=== PATIENT | male | born 1980 | race Caucasian/White ===

== ENCOUNTER 2018-07-30 16:44 | Emergency (ER) | payer OTHER, MEDICAID, SELFPAY ==
[2018-07-30 16:51] VITALS: BP 101/64; PULSE 86; RESP 15; TEMP 36.7; O2SAT 97; BMI 25.1
--- NOTE | 2018-07-30 17:28 | ED_ITS ---
HPI - URI/Sore Throat <GAVIOTA Britt - Last Filed: 07/30/18 17:32> General Chief Complaint: Upper Respiratory Symptoms Stated Complaint: COUGH BAD HEADACHE RUNNY NOSE Time Seen by Provider: 07/30/18 17:00 Source: patient Mode of arrival: ambulatory Limitations: no limitations History of Present Illness HPI Narrative: MD Complaint: cough and nasal congestion Onset (ago): week(s) (2) Duration: constant Severity: mild Relieving factors: nothing Exacerbating factors: nothing Description of mucous: yellow and green Able to tolerate fluids by mouth: Yes Context: sick contacts Associated symptoms: rhinorrhea and nasal congestion Treatments prior to arrival: cold medicine Related Data Previous Rx's Medication Instructions Recorded azithromycin [Zithromax Z-Mario] See Label Instructions .ROUTE 07/30/18 .COMPLEX #6 tab guaifenesin [Mucinex] 600 mg PO Q12H #20 tab 07/30/18 Allergies Allergy/AdvReac Type Severity Reaction Status Date / Time Penicillins Allergy Verified 07/30/18 16:51 Review of Systems <GAVIOTA Britt - Last Filed: 07/30/18 17:32> Constitutional Reports as per HPI, Reports system reviewed and no additional complaints, except as docu, Denies body ache(s), Denies chills, Denies fever(s) and Denies headache(s) ENT Ears, Nose, Mouth, and Throat: Denies ear discharge, Denies otalgia, Denies facial pain, Denies headache(s), Reports nasal congestion, Denies nasal discharge, Denies post nasal drip, Denies sinus pain, Denies sinus pressure and Denies sore throat Cardiovascular Denies chest pain, Denies dyspnea and Denies dyspnea on exertion Respiratory Reports change in phlegm color (from white to yellow to green), Reports cough, Denies pain on inspiration, Denies pain with cough, Denies dyspnea, Denies dyspnea on exertion and Denies wheezing Gastrointestinal Gastrointestinal: Denies abdominal pain Musculoskeletal Reports system reviewed and no additional complaints, except as docu Neurologic Denies headache(s) Allergic/Immunologic Denies wheezing Exam <GAVIOTA Britt - Last Filed: 07/30/18 17:32> Initial Vital Signs Initial Vital Signs: Vital Signs Temperature 98.1 F 07/30/18 16:51 Pulse Rate 86 07/30/18 16:51 Respiratory Rate 15 07/30/18 16:51 Blood Pressure 101/64 07/30/18 16:51 Pulse Oximetry 97 07/30/18 16:51 Const General: cooperative, healthy appearing, comfortable, well developed and well groomed Nutritional Appearance: average body habitus Orientation: alert, awake and oriented x3 [facility] Head: normal to inspection and normocephalic Ears: hearing grossly normal bilaterally, external ears normal, TM's normal bilaterally and mastoids normal Nose: external nose normal and nares normal Face and sinus: normal facial exam, sinuses nontender and face symmetric Mouth: oral mucosae normal, lip normal, tongue normal, oropharynx normal and moist mucous membranes Teeth and gingiva: dentition normal and gingiva normal Throat: posterior oropharynx normal, tonsils normal and uvula midline Eyes General: appearance normal, both eyes and all related structures Visual Kilgore: normal visual kilgore by confrontation Eyelids: eyelids normal Conjunctivae: conjunctivae normal Sclera: sclerae normal Pupils: PERRL EOM: EOM intact bilaterally Neck Neck: normal visual inspection, full ROM, no meningeal signs, trachea midline, supple and No lymphadenopathy Chest Chest: normal inspection of the chest Resp Effort & Inspection: normal respiratory effort and able to speak in complete sentences Auscultation: clear to auscultation bilaterally Cardio Rate: regular rate Rhythm: regular rhythm Heart Sounds: S1 normal and S2 normal Back/Spine/Pelvis Cervical Spine: cervical ROM normal Thoracic/Lumbar Spine: thoraco-lumbar ROM normal Skin General: no rashes or lesions noted, elasticity normal, turgor normal and dry skin Neuro General: alert, awake, oriented x3 and meningeal signs present Cognition: normal cognition Speech: speech normal Gait: normal gait Motor: muscle tone normal throughout Sensory Exam: no sensory deficits noted Extrem General: normal to inspection and full ROM Psych Appearance: grossly normal and well kempt Mental Status: mental status grossly normal Speech and Movement: speech and movement normal Mood: congruent mood Affect: normal affect Attitude: cooperative Thought Process: normal Thought Content: normal Judgment: judgment good <Homa Willson, DO - Last Filed: 08/04/18 09:53> Initial Vital Signs Initial Vital Signs: Vital Signs Temperature 98.1 F 07/30/18 16:51 Pulse Rate 86 07/30/18 16:51 Respiratory Rate 15 07/30/18 16:51 Blood Pressure 101/64 07/30/18 16:51 Pulse Oximetry 97 07/30/18 16:51 Course <GAVIOTA Britt - Last Filed: 07/30/18 17:32> Course Narrative: agreed to do abx, since s/s are getting worse and lasting for longer than 10 days Vital Signs - 8 hr 07/30/18 16:51 Temperature 98.1 F Pulse Rate 86 Respiratory Rate 15 Blood Pressure 101/64 Pulse Oximetry 97 <Homa Willson DO - Last Filed: 08/04/18 09:53> Vital Signs - 8 hr 07/30/18 16:51 Temperature 98.1 F Pulse Rate 86 Respiratory Rate 15 Blood Pressure 101/64 Pulse Oximetry 97 MDM - URI/Sore Throat <GAVIOTA Britt - Last Filed: 07/30/18 17:32> Differential Diagnosis Differential diagnosis: Likely upper respiratory infection, sinusitis, viral infection, bronchitis, influenza and other (pneumonia) Discharge Plan Departure Patient Disposition: Home Clinical Impression: Walking pneumonia Discharge Date/Time: 07/30/18 17:31 Interventions: ED Discharge Assessment Last Done: 07/30/18 17:30 Instructions: Atypical Pneumonia Prescriptions: New azithromycin [Zithromax Z-Mario] 250 mg tablet See Label Instructions .ROUTE .COMPLEX Qty: 6 RF: 0 guaifenesin [Mucinex] 600 mg tablet extended release 12hr 600 mg PO Q12H Qty: 20 RF: 0 Referrals: Anselmo Bedolla MD [Physician] - (follow up recommended in 3-5 days) Timur Irene MD [Physician] - Jessica Torres MD [Physician] - <Homa Willson DO - Last Filed: 08/04/18 09:53> Cosign ED Attending Cosfayature Attestation: I was immediately available in the department for consultation. Documentation has been reviewed. I agree with assessment and plan.
== END 2018-07-30 17:31 | disposition home or self-care (01) ==
PROVIDERS: Emergency Provider Nurse Practitioner
DX: J18.9 Pneumonia, unspecified organism (principal)
CPT/HCPCS: 99282

== ENCOUNTER 2020-01-21 18:25 | Emergency (ER) | payer OTHER, MEDICAID, SELFPAY ==
[2020-01-21 18:33] VITALS: BP 127/70; PULSE 107; RESP 13; TEMP 36.4; O2SAT 99
--- NOTE | 2020-01-21 18:40 | ED.CHESTPAIN ---
HPI - Chest Pain General Chief Complaint: Chest Pain Stated Complaint: DIZZY TIRED LITTLE BIT OF CHEST PAIN Time Seen by Provider: 01/21/20 18:27 Source: patient and family (son) Mode of arrival: Ambulatory Limitations: no limitations History of Present Illness HPI narrative: 39-year-old male comes to the emergency department with complaint of feeling dizzy and having some burning in his chest patient denies any fevers. He has had some nasal congestion which is been dried. He denies any current cough. He denies any current shortness of breath. He states that it is not really chest pain or pressure but more burning sensation. He has a mild headache. No vision changes. He denies any syncope. He has been more sleepy today. He denies any abdominal pain. No nausea, no vomiting, no diarrhea constipation, no urinary symptoms. No swelling in extremities. He denies any numbness, tingling or weakness in his extremities. Patient states that he does not have any known medical issues, no prior surgeries. He does smoke tobacco about half pack a day, he denies alcohol, states he smokes marijuana but denies other illicit. He states that he drinks about 4 pots of coffee daily. 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 Related Data Home Medications Medication Instructions Recorded Confirmed No Known Home Medications 01/21/20 01/21/20 Allergies Allergy/AdvReac Type Severity Reaction Status Date / Time Penicillins Allergy Verified 01/21/20 18:39 Review of Systems Review of Systems ROS Unobtainable: All systems reviewed & are unremarkable except as noted in HPI and below Patient History Medical History (Updated 01/21/20 @ 18:50 by Kelly Galeas DO) Tobacco abuse (Acute) Social History (Updated 01/21/20 @ 19:47 by Kelly Galeas DO) Smoking Status: Current every day smoker substance use type: former substance user and marijuana Smoking Status: Current every day smoker Substance Use Type: marijuana Exam Narrative Exam Narrative: GEN: well nourished, well appearing male, alert and oriented x 3, patient appears to be in mild distress. HEENT: Atraumatic, pupils are equal round reactive to light, extraocular movements are intact, nares are clear, throat is clear without any exudates, erythema, tonsillar enlargement or uvular deviation HEART: Regular rate tachycardia and rhythm without murmur, clicks, rubs. No JVD. No swelling in bilateral lower extremities. LUNGS:Lungs clear to auscultation, no wheezes, rales, crackles, chest moves symmetrically, no tachypnea accessory muscle use. ABD:bowel sounds normal, soft, non-tender, no guarding, rebound, rigidity, no masses noted, no hepatosplenomegaly :No CVA tenderness MSCL: Non-tender, full range of motion, normal gait NEURO:CN 2-12 intact, sensation normal. SKIN: Rash, no erythema or skin changes. Initial Vital Signs Initial Vital Signs: Vital Signs Temperature 97.6 F 01/21/20 18:33 Pulse Rate 107 H 01/21/20 18:33 Respiratory Rate 13 01/21/20 18:33 Blood Pressure 127/70 01/21/20 18:33 Pulse Oximetry 99 01/21/20 18:33 Scores HEART Score Heart Score history: Slightly Suspicious Heart Score EKG: Non-Specific repolarization disturbance Heart Score Age: < 45 years old Heart Score risk factors: No known risk factors Heart Score troponin: < or = to normal limit Heart Score Total: 1 PERC Score Age greater than or equal to 50 years: No Heart rate greater than or equal to 100 bpm: Yes Room Air O2 Sat less than 95%: No Unilateral leg swelling: No Recent trauma or surgery: No Hemoptysis: No Prior PE or DVT: No Hormone Use: No Total PERC Score: 1 Course Orders Ordered: ED Orders 01/21/20 18:40 XR chest 1V Stat EKG-12 Lead Stat 01/21/20 18:55 Complete Blood Count AUTO DIFF Stat Comprehensive Metabolic Panel Stat D Dimer Stat Lipase Stat Partial Thromboplastin Time Stat Prothrombin Time INR Stat Troponin & CK Cardiac Panel Stat Discontinued Medications Aspirin (Aspirin Chew) 324 mg PO NOW ONE Stop: 01/21/20 18:41 Last Admin: 01/21/20 18:49 Dose: 324 mg Documented by: CTR.DENISE Sodium Chloride (Normal Saline 0.9%) 1,000 mls @ 1,000 mls/hr IV BOLUS ONE Stop: 01/21/20 19:39 Last Infusion: 01/21/20 19:50 Dose: 0 mls/hr Documented by: [email or web address] Admin: 01/21/20 18:50 Dose: 1,000 mls/hr Documented by: [email or web address] Vital Signs Vital signs: Vital Signs - 8 hr 01/21/20 18:33 01/21/20 18:50 01/21/20 19:06 Temperature 97.6 F Pulse Rate 107 H 113 H 111 H Respiratory Rate 13 16 20 Blood Pressure 127/70 Blood Pressure [Left Arm] 122/79 115/67 Pulse Oximetry 99 100 100 01/21/20 19:39 01/21/20 20:00 Temperature Pulse Rate 109 H 107 H Respiratory Rate 14 16 Blood Pressure 133/77 Blood Pressure [Left Arm] 113/70 Pulse Oximetry 99 99 MDM - Chest Pain Lab Data Attestation: I reviewed the patient's lab results. Result diagrams: 01/21/20 18:55 01/21/20 18:55 Labs: Lab Results 01/21/20 01/21/20 01/21/20 Range/Units 18:55 18:55 18:55 WBC 8.8 (4.5-11.0) X10^3/uL RBC 4.84 (4.5-5.9) X10^6/uL Hgb 14.8 (13.5-17.5) g/dL Hct 44.0 (41-53) % MCV 90.9 (80-100) fL MCH 30.5 (26-34) PG MCHC 33.6 (30-36) % RDW 13.5 (11.6-14.8) % Plt Count 294 (150-400) X10^3/uL Neut % (Auto) 48.4 L (50-75) % Lymph % (Auto) 37.6 (25-40) % Duval % (Auto) 7.0 (3-14) % Eos % (Auto) 6.0 H (2-4) % Baso % (Auto) 1.0 (0-2) % Neut # (Auto) 4300 (6802-5229) /uL Lymph # (Auto) 3300 (3172-2839) /uL Duval # (Auto) 600 (0-900) /uL Eos # (Auto) 500 H (0-450) /uL Baso # (Auto) 100 (0-100) /uL PT 9.8 L (10.1-12.7) SECONDS INR 0.8 L (0.9-1.3) APTT 31 (26.4-36.2) SECONDS D-Dimer (<230) ng/mL Sodium 140 (137-145) mmol/L Potassium 4.4 (3.4-5.1) mmol/L Chloride 105 (98-107) mmol/L Carbon Dioxide 26 (22-32) mmol/L BUN 19 (9-20) mg/dL Creatinine 0.91 (0.66-1.25) mg/dL Estimated GFR > 60.0 (>60) mL/min BUN/Creatinine Ratio 20.9 (6-22) Glucose 129 H (70-100) mg/dL Calcium 9.3 (8.4-10.2) mg/dL Total Bilirubin 0.2 (0.2-1.3) mg/dL AST 31 (17-59) IU/L ALT 23 (<50) IU/L Alkaline Phosphatase 103 (38-126) U/L Total Creatine Kinase 265 H (55-170) U/L CK-MB (CK-2) 2.04 (<2.37) ng/mL CK-MB (CK-2) Rel Index 0.8 L (1.5-5.0) % Troponin I < 0.012 (0.01-0.034) ng/mL Total Protein 7.4 (6.3-8.2) g/dL Albumin 4.2 (3.5-5.0) g/dL Globulin 3.2 (1.7-4.1) g/dL Albumin/Globulin Ratio 1.3 (1.0-2.8) Lipase 133 (23-300) U/L 03/24/20 Range/Units 18:55 WBC (4.5-11.0) X10^3/uL RBC (4.5-5.9) X10^6/uL Hgb (13.5-17.5) g/dL Hct (41-53) % MCV (80-100) fL MCH (26-34) PG MCHC (30-36) % RDW (11.6-14.8) % Plt Count (150-400) X10^3/uL Neut % (Auto) (50-75) % Lymph % (Auto) (25-40) % Duval % (Auto) (3-14) % Eos % (Auto) (2-4) % Baso % (Auto) (0-2) % Neut # (Auto) (6556-6862) /uL Lymph # (Auto) (9055-2302) /uL Duval # (Auto) (0-900) /uL Eos # (Auto) (0-450) /uL Baso # (Auto) (0-100) /uL PT (10.1-12.7) SECONDS INR (0.9-1.3) APTT (26.4-36.2) SECONDS D-Dimer < 200 (<230) ng/mL Sodium (137-145) mmol/L Potassium (3.4-5.1) mmol/L Chloride (98-107) mmol/L Carbon Dioxide (22-32) mmol/L BUN (9-20) mg/dL Creatinine (0.66-1.25) mg/dL Estimated GFR (>60) mL/min BUN/Creatinine Ratio (6-22) Glucose (70-100) mg/dL Calcium (8.4-10.2) mg/dL Total Bilirubin (0.2-1.3) mg/dL AST (17-59) IU/L ALT (<50) IU/L Alkaline Phosphatase (38-126) U/L Total Creatine Kinase (55-170) U/L CK-MB (CK-2) (<2.37) ng/mL CK-MB (CK-2) Rel Index (1.5-5.0) % Troponin I (0.01-0.034) ng/mL Total Protein (6.3-8.2) g/dL Albumin (3.5-5.0) g/dL Globulin (1.7-4.1) g/dL Albumin/Globulin Ratio (1.0-2.8) Lipase (23-300) U/L Imaging Data Chest x-ray: Radiologist's Impression: SAVANNAARAM Fonseca 39 M [address] [address] XRay Report Signed Patient: ARAM CORRALES FMR#: [id number] : 1980Acct:[id number] Age/Sex: 39 / MDate of Service: 01/21/20 Loc: ED Accession Number: [id number] Procedure: XR chest 1V Ordering Provider: Mank,Kelly C D.O. PROCEDURE: XR CHEST 1V INDICATIONS: Dizziness, fatigue, chest pain TECHNIQUE: One view of the chest was acquired. COMPARISON: None. FINDINGS: Surgical changes and devices: None. Lungs and pleura: Lungs are clear. No pleural effusions or pneumothorax. Mediastinum: Mediastinal contours appear normal. Heart size is normal. Bones and chest wall: No suspicious bony lesions. Overlying soft tissues appear unremarkable. IMPRESSION: 1. No acute cardiopulmonary disease. Dictated by: Tee Hanye M.D. on 01/21/2020 at 18:53 Approved by: Tee Haney M.D. on 01/21/2020 at 18:55 ECG Data Attestation: I personally reviewed and interpreted this ECG as follows: Prior ECG tracings: not available for review Interpretation: Sinus tachycardia rate of 109 ME 128 QRS of 96 and QTC of 436. Patient has RSR in V1 with 1 mm elevation in V1, no other ST segment changes appreciated. No prior available for review. MDM Narrative Medical decision making narrative: Patient comes in with a dizzy feeling but no syncope little bit of burning in his chest. No cough he does not feel short of breath. He is mildly tachycardic in even after 1 L fluids continues to be somewhat tachycardic but no hypotension, no fever no changes in respiratory rate or oxygenation. Discussed with patient his lab findings including CBC show low neutrophils with a higher eosinophil count, coags show an INR of 0.8 with a negative D-dimer. Electrolytes are negative with normal renal function a glucose of 129. Total CK is 265 with a negative troponin and otherwise normal lipase. Chest x-ray does not show acute findings. Patient's EKG does show sinus tachycardia. He does not have high risk factors in terms of pulmonary embolism. We did discuss that he normally drinks 4 pots of regular coffee daily and he has had 2 cups today. We discussed there may be a component of caffeine withdrawal. We also discussed that this could potentially be masking another cause but I have not found a clear cardiac, pulmonary, embolic or infectious cause at this time. Discussed return precautions watchful waiting that he should have some coffee at home this evening and see if that helps his symptoms and return if he is worsening. Patient and I did discuss potentially repeating another 1 L of fluids and observing for a longer period of time but he would prefer to return home at this time. Discharge Plan Departure Patient Disposition: Home Clinical Impression: Dizziness, Atypical chest pain Discharge Date/Time: 01/21/20 20:00 Instructions: DI for Atypical Chest Pain Activity Restrictions/Additional Instructions: There may be a component of caffeine withdrawal to your symptoms today I would recommend drinking a moderate amount of caffeine when he returned home and see if this improves your symptoms. I do recommend that you continue to orally hydrate with fluids and include water in your diet. Return for fevers and shortness of breath, passing out, new or worsening chest pain or pressure, persistent vomiting, swelling in your extremities, new rashes or skin changes, black or bloody stools or other new or concerning symptoms. Prescriptions: No Action No Known Home Medications RF: 0
[2020-01-21] MEDS: ASPIRIN 81 MG CHEW TAB 324 MG PO (18:49)
[2020-01-21 18:50] VITALS: BP 122/79; PULSE 113; RESP 16; O2SAT 100
[2020-01-21] MEDS: SODIUM CHLORIDE 0.9% 1,000 ML 1000 ML IV (18:50)
[2020-01-21 19:02] LABS: Add Manual Diff / Slide Review NO; Basophils Absolute Auto 100 /uL (0-100); Eosinophils Absolute Auto 500 /uL (0-450); Hemoglobin 14.8 g/dL (13.5-17.5); Lymphocytes Absolute Auto 3300 /uL (1100-4500); Lymphocytes Percent Auto 37.6 % (25-40); Mean Corpuscular HGB Conc 33.6 % (30-36); Mean Corpuscular Hemoglobin 30.5 PG (26-34); Mean Corpuscular Volume 90.9 fL (80-100); Monocytes Absolute Auto 600 /uL (0-900); Neutrophils Absolute Auto 4300 /uL (1500-7000); Neutrophils Percent Auto 48.4 % (50-75); Platelet Count 294 X10^3/uL (150-400); Red Blood Cell Count 4.84 X10^6/uL (4.5-5.9); Red Cell Distribution Width 13.5 % (11.6-14.8); White Blood Cell Count 8.8 X10^3/uL (4.5-11.0)
[2020-01-21 19:06] VITALS: BP 115/67; PULSE 111; RESP 20; O2SAT 100
[2020-01-21 19:12] LABS: Alanine Aminotransferase 23 IU/L (<50); Albumin 4.2 g/dL (3.5-5.0); Albumin Globulin Ratio 1.3 (1.0-2.8); Alkaline Phosphatase 103 U/L (38-126); Aspartate Aminotransferase 31 IU/L (17-59); BUN Creatinine Ratio 20.9 (6-22); Bilirubin Total 0.2 mg/dL (0.2-1.3); Blood Urea Nitrogen 19 mg/dL (9-20); Calcium 9.3 mg/dL (8.4-10.2); Carbon Dioxide 26 mmol/L (22-32); Chloride 105 mmol/L (98-107); Creatine Kinase 265 U/L (55-170); Estimated Glomerular Filt Rate > 60.0 mL/min (>60); Globulin 3.2 g/dL (1.7-4.1); Glucose 129 mg/dL (70-100); HEMOLYSIS 19 (0-50); Lipase 133 U/L (23-300); Potassium 4.4 mmol/L (3.4-5.1); Sodium 140 mmol/L (137-145); Total Protein 7.4 g/dL (6.3-8.2)
[2020-01-21 19:13] LABS: D Dimer < 200 ng/mL (<230)
[2020-01-21 19:18] LABS: INR 0.8 (0.9-1.3); Prothrombin Time 9.8 SECONDS (10.1-12.7)
[2020-01-21 19:20] LABS: PTT Partial Thromboplastin Tim 31 SECONDS (26.4-36.2)
[2020-01-21 19:24] LABS: Troponin I < 0.012 ng/mL (0.01-0.034)
[2020-01-21 19:27] LABS: CKMB % Relative Index 0.8 % (1.5-5.0); Creatine Kinase MB 2.04 ng/mL (<2.37)
[2020-01-21 19:39] VITALS: BP 113/70; PULSE 109; RESP 14; O2SAT 99
--- NOTE | 2020-01-21 19:42 | PC.NURSE ---
Provider in room discussing test results.
[2020-01-21 20:00] VITALS: BP 133/77; PULSE 107; RESP 16; O2SAT 99
== END 2020-01-21 20:00 | disposition home or self-care (01) ==
PROVIDERS: Emergency Provider Emergency Medicine
DX: R07.9 Chest pain, unspecified (principal); R42 Dizziness and giddiness; R07.89 Other chest pain; R00.0 Tachycardia, unspecified
CPT/HCPCS: 36415; 71045; 80053; 82550; 82553; 83690; 84484; 85025; 85379; 85610; 85730; 93005; 96360; 99284

== ENCOUNTER 2022-02-16 20:36 | Emergency (ER) | payer OTHER, MEDICAID, SELFPAY ==
[2022-02-16] VITALS (7 sets, daily range): BP systolic 89–120; BP diastolic 55–81; PULSE 75–97; RESP 22; TEMP 36.5–36.6; O2SAT 95–99; BMI 27.8
--- NOTE | 2022-02-16 20:47 | DI.RAD.S_ITS ---
PROCEDURE: XR CHEST 1V INDICATIONS: chest pain TECHNIQUE: One view of the chest was acquired. COMPARISON: [facility], CR, XR CHEST 1V, 01/21/2020, 18:43. FINDINGS: Surgical changes and devices: None. Lungs and pleura: Lungs are clear. No pleural effusions or pneumothorax. Mediastinum: Mediastinal contours appear normal. Heart size is normal. Bones and chest wall: No suspicious bony lesions. Overlying soft tissues appear unremarkable. IMPRESSION: No acute cardiopulmonary abnormality. Dictated by: Mateusz King M.D. on 02/16/2022 at 22:24 Approved by: Mateusz King M.D. on 02/16/2022 at 22:24
[2022-02-16 22:12] LABS: Add Manual Diff / Slide Review NO; Basophils Absolute Auto 100 /uL (0-100); Basophils Percent Auto 0.7 % (0-2); Eosinophils Absolute Auto 300 /uL (0-450); Eosinophils Percent Auto 3.2 % (2-4); Hematocrit 47.4 % (41-53); Lymphocytes Absolute Auto 3400 /uL (1100-4500); Lymphocytes Percent Auto 36.2 % (25-40); Mean Corpuscular HGB Conc 33.8 % (30-36); Mean Corpuscular Hemoglobin 29.7 PG (26-34); Mean Corpuscular Volume 87.9 fL (80-100); Monocytes Absolute Auto 800 /uL (0-900); Neutrophils Absolute Auto 4900 /uL (1500-7000); Neutrophils Percent Auto 51.9 % (50-75); Platelet Count 347 X10^3/uL (150-400); Red Cell Distribution Width 13.7 % (11.6-14.8); White Blood Cell Count 9.4 X10^3/uL (4.5-11.0)
[2022-02-16 22:16] LABS: Alanine Aminotransferase 44 IU/L (<50); Albumin 4.5 g/dL (3.5-5.0); Albumin Globulin Ratio 1.3 (1.0-2.8); Alkaline Phosphatase 121 U/L (38-126); Aspartate Aminotransferase 33 IU/L (17-59); BUN Creatinine Ratio 17.2 (6-22); Bilirubin Total 0.4 mg/dL (0.2-1.3); Blood Urea Nitrogen 16 mg/dL (9-20); Calcium 8.9 mg/dL (8.4-10.2); Carbon Dioxide 28 mmol/L (22-32); Chloride 106 mmol/L (98-107); Creatine Kinase 97 U/L (55-170); Estimated Glomerular Filt Rate > 60 mL/min (>60); Globulin 3.6 g/dL (1.7-4.1); Glucose 98 mg/dL (70-100); HEMOLYSIS < 15 (0-50); Lipase 115 U/L (23-300); Magnesium 2.2 mg/dL (1.6-2.3); Potassium 4.8 mmol/L (3.4-5.1); Sodium 142 mmol/L (137-145); Total Protein 8.1 g/dL (6.3-8.2)
[2022-02-16 22:27] LABS: Troponin I < 0.012 ng/mL (0.01-0.034)
--- NOTE | 2022-02-16 22:35 | ED_ITS ---
HPI - Chest Pain General Chief Complaint: Chest Pain Stated Complaint: Chest Pain Time Seen by Provider: 02/16/22 22:06 Source: patient Mode of arrival: EMS Limitations: no limitations History of Present Illness HPI narrative: 41-year-old male. Otherwise healthy. Three days ago took a home COVID testing was positive. Started to develop symptoms that he presents with today over the past 24 hours. He states the reason he to go home COVID test is because his niece tested positive. Patient states he is having a headache. Has had headaches in the past. Is also having a cough and chest discomfort. No vomiti ng. No skin rashes. No abdominal pain. Related Data Home Medications Medication Instructions Recorded Confirmed No Known Home Medications 01/21/20 01/21/20 Allergies Allergy/AdvReac Type Severity Reaction Status Date / Time Penicillins Allergy Verified 01/21/20 18:39 Review of Systems Constitutional Constitutional: Denies fever(s) and Reports headache(s) Eyes Eyes: Reports system reviewed and no additional complaints, except as documented ENT Ears, Nose, Mouth, and Throat: Reports headache(s) Cardiovascular Cardiovascular: Reports system reviewed and no additional complaints, except as documented Respiratory Respiratory: Reports as per HPI and Reports system reviewed and no additional complaints, except as documented Gastrointestinal Gastrointestinal: Reports as per HPI and Reports system reviewed and no additional complaints, except as documented Musculoskeletal Musculoskeletal: Reports system reviewed and no additional complaints, except as documented Integumentary/Breasts Skin/Breast: Reports system reviewed and no additional complaints, except as documented Neurologic Neurologic: Reports system reviewed and no additional complaints, except as documented and Reports headache(s) Hematologic/Lymphatic On Anticoagulants: No Patient History Medical History Tobacco abuse Social History Smoking Status: Current every day smoker substance use type: former substance user and marijuana Smoking Status: Current every day smoker tobacco type: cigarettes Substance Use Type: marijuana Exam Initial Vital Signs Initial Vital Signs: Vital Signs Temperature 97.8 F 02/16/22 20:38 Pulse Rate 97 H 02/16/22 20:38 Respiratory Rate 22 02/16/22 20:38 Blood Pressure 120/81 02/16/22 20:38 Pulse Oximetry 99 02/16/22 20:38 Const General: cooperative and comfortable HENMT Head: normal to inspection and normocephalic Resp Effort & Inspection: normal respiratory effort Cardio Rate: regular rate GI Inspection: normal to inspection Skin General: no rashes or lesions noted Neuro General: patient alert, patient awake, patient oriented x3 and moves all extremities Speech: speech normal Gait: normal gait Extrem General: normal to inspection Psych Appearance: grossly normal and well kempt Course Orders Ordered: ED Orders 02/16/22 20:47 XR chest 1V Stat EKG-12 Lead Stat 02/16/22 21:08 Complete Blood Count AUTO DIFF Stat Comprehensive Metabolic Panel Stat Lipase Stat Magnesium Stat Troponin & CK Cardiac Panel Stat Discontinued Medications Acetaminophen (Acetaminophen 325 Mg Tablet) 650 mg PO NOW ONE Stop: 02/16/22 22:36 Last Admin: 02/16/22 22:45 Dose: 650 mg Documented by: MIGUEL ANGEL Diphenhydramine HCl (Diphenhydramine 50 Mg/Ml Vial) 25 mg IV NOW ONE Stop: 02/16/22 22:36 Last Admin: 02/16/22 22:44 Dose: 25 mg Documented by: MIGUEL ANGEL Sodium Chloride (Normal Saline 0.9%) 1,000 mls @ 1,000 mls/hr IV BOLUS ONE Stop: 02/16/22 23:34 Last Infusion: 02/16/22 23:47 Dose: 0 mls/hr Documented by: MIGUEL ANGEL Admin: 02/16/22 22:45 Dose: 1,000 mls/hr Documented by: MIGUEL ANGEL Metoclopramide HCl (Metoclopramide 10 Mg/2 Ml Inj) 10 mg IV NOW ONE Stop: 02/16/22 22:36 Last Admin: 02/16/22 22:44 Dose: 10 mg Documented by: MIGUEL ANGEL Vital Signs Vital signs: Vital Signs - 8 hr 02/16/22 21:55 02/16/22 21:56 02/16/22 22:00 Temperature 97.7 F Pulse Rate 88 85 78 Blood Pressure 107/61 108/61 Pulse Oximetry 97 95 96 02/16/22 22:30 02/16/22 23:00 02/16/22 23:30 Temperature Pulse Rate 86 75 80 Blood Pressure 106/60 89/56 L 101/55 L Pulse Oximetry 98 99 99 02/17/22 00:00 Temperature Pulse Rate 73 Blood Pressure 99/55 L Pulse Oximetry 99 MDM - Chest Pain Lab Data Attestation: I reviewed the patient's lab results. Result diagrams: 02/16/22 21:08 02/16/22 21:08 Labs: Lab Results 02/16/22 02/16/22 Range/Units 21:08 21:08 WBC 9.4 (4.5-11.0) X10^3/uL RBC 5.40 (4.5-5.9) X10^6/uL Hgb 16.0 (13.5-17.5) g/dL Hct 47.4 (41-53) % MCV 87.9 (80-100) fL MCH 29.7 (26-34) PG MCHC 33.8 (30-36) % RDW 13.7 (11.6-14.8) % Plt Count 347 (150-400) X10^3/uL Neut % (Auto) 51.9 (50-75) % Lymph % (Auto) 36.2 (25-40) % [place] % (Auto) 8.0 (3-14) % Eos % (Auto) 3.2 (2-4) % Baso % (Auto) 0.7 (0-2) % Neut # (Auto) 4900 (4200-3027) /uL Lymph # (Auto) 3400 (8699-0806) /uL [place] # (Auto) 800 (0-900) /uL Eos # (Auto) 300 (0-450) /uL Baso # (Auto) 100 (0-100) /uL Sodium 142 (137-145) mmol/L Potassium 4.8 (3.4-5.1) mmol/L Chloride 106 (98-107) mmol/L Carbon Dioxide 28 (22-32) mmol/L BUN 16 (9-20) mg/dL Creatinine 0.93 (0.66-1.25) mg/dL Estimated GFR > 60 (>60) mL/min BUN/Creatinine Ratio 17.2 (6-22) Glucose 98 (70-100) mg/dL Calcium 8.9 (8.4-10.2) mg/dL Magnesium 2.2 (1.6-2.3) mg/dL Total Bilirubin 0.4 (0.2-1.3) mg/dL AST 33 (17-59) IU/L ALT 44 (<50) IU/L Alkaline Phosphatase 121 (38-126) U/L Total Creatine Kinase 97 (55-170) U/L CK-MB (CK-2) TNP CK-MB (CK-2) Rel Index TNP Troponin I < 0.012 (0.01-0.034) ng/mL Total Protein 8.1 (6.3-8.2) g/dL Albumin 4.5 (3.5-5.0) g/dL Globulin 3.6 (1.7-4.1) g/dL Albumin/Globulin Ratio 1.3 (1.0-2.8) Lipase 115 (23-300) U/L Imaging Data Chest x-ray: Radiologist's Impression: [address] [address] XRay Report Signed Patient: Jaiden Cassidy MR#: [id number] : 1980 Acct:[id number] Age/Sex: 41 / M Date of Service: 02/16/22 Loc: ED Accession Number: [id number] ?? Procedure: XR chest 1V Ordering Provider: Timur Gonzales D.O. PROCEDURE:? XR CHEST 1V ? INDICATIONS:? chest pain ? TECHNIQUE:? One view of the chest was acquired.? ? COMPARISON:? [facility], [place], XR CHEST 1V, 01/21/2020, 18:43. ? FINDINGS:? ? Surgical changes and devices:? None.? ? Lungs and pleura:? Lungs are clear.? No pleural effusions or pneumothorax.? ? Mediastinum:? Mediastinal contours appear normal.? Heart size is normal.? ? Bones and chest wall:? No suspicious bony lesions.? Overlying soft tissues appear unremarkable.? ? IMPRESSION:? No acute cardiopulmonary abnormality. ? ? ? Dictated by: Mateusz King M.D. on 02/16/2022 at 22:24 ? ? Approved by: Mateusz King M.D. on 02/16/2022 at 22:24? ECG Data Attestation: I personally reviewed and interpreted this ECG as follows: Interpretation: Sinus rhythm Ventricular rate 90 Normal axis Normal QRS Normal QTC No ST T wave changes MDM Narrative Medical decision making narrative: Patient does have COVID. Exam unremarkable. Reports improvement of headache after treatment here in the ER. I do have low suspicion for meningitis. Low suspicion for intracranial hemorrhage. Low suspicion for ACS. Discharged home and instructed that he can take Tylenol for his headache. He was given return precautions. He expressed understanding and agreement. Discharge Plan Departure Patient Disposition: Home Clinical Impression: COVID-19, Headache Instructions: DI for COVID-19 (Suspected or Confirmed ) Activity Restrictions/Additional Instructions: You can take Tylenol for the headaches or body aches. Follow all CDC guidelines with regard to quarantine yourself because of the previous COVID-19 diagnosis. Return to the emergency department for any new or worsening symptoms. Prescriptions: No Action No Known Home Medications 0RF
[2022-02-16] MEDS: METOCLOPRAMIDE 10 MG/2 ML INJ IV (22:44)
[2022-02-16] MEDS: diphenhydrAMINE 50 MG/ML VIAL 25 MG IV (22:44)
[2022-02-16] MEDS: ACETAMINOPHEN 325 MG TABLET 650 MG PO (22:45)
[2022-02-16] MEDS: SODIUM CHLORIDE 0.9% 1,000 ML 1000 ML IV (22:45)
[2022-02-17] VITALS: BP 99/55; PULSE 73; O2SAT 99
== END 2022-02-17 00:24 | disposition home or self-care (01) ==
PROVIDERS: Emergency Provider Emergency Medicine
DX: U07.1 COVID-19 (principal); R51.9 Headache, unspecified; F17.210 Nicotine dependence, cigarettes, uncomplicated
CPT/HCPCS: 36415; 71045; 80053; 82550; 83690; 83735; 84484; 85025; 93005; 96361; 96374; 96375; 99284; J1200; J2765

== ENCOUNTER 2023-06-09 12:27 | Emergency (ER) | payer OTHER, MEDICAID, SELFPAY ==
[2023-06-09] VITALS (9 sets, daily range): BP systolic 128–163; BP diastolic 79–93; PULSE 59–103; RESP 14–19; TEMP 36.6; O2SAT 95–100; BMI 30.1
[2023-06-09] MEDS: LIDOCAINE 2% (GLYDO) 6 ML GEL TOP (13:15)
--- NOTE | 2023-06-09 13:22 | DI.CT.S_ITS ---
PROCEDURE: CT KIDNEY URETER BLADDER (KUB) INDICATIONS: RLQ, difficulty with urination TECHNIQUE: Axial sections were acquired from the lung bases to the pubic symphysis. Coronal and sagittal reformats were performed. For radiation dose reduction, the following was used: automated exposure control, adjustment of mA and/or kV according to patient size. COMPARISON: None. FINDINGS: Image quality: Excellent. Lung bases: Unremarkable. Small hiatal hernia. Heart: No significant findings. URINARY: Right Kidney and ureter: There is a 5 mm stone in the distal right ureter demonstrating CT density 520 HU. Mild right hydronephrosis and perinephric stranding. There is a 3 mm nonobstructive stone in the inferior pole. Mild hydroureter and perinephric stranding to the level of the obstructive stone. Left Kidney and ureter: There is a 3 mm nonobstructive stone in the superior pole. No hydronephrosis. No hydroureter. Bladder: Cotter catheter within the bladder which is contracted. No calcified stones. Air within the bladder lumen is likely iatrogenic. ABDOMEN: Liver: Unremarkable. Gallbladder: Contracted. Question small gallstones and mild wall thickening. Biliary ducts: Unremarkable. Pancreas: Unremarkable. Spleen: Unremarkable. Adrenal Glands: Unremarkable. Stomach and Bowel: Stomach, small bowel loops, and colon are normal in caliber. There is a large amount of stool in colon. The distal colon is decompressed. Question mildly increased subacute to fat content in the distal colon, which could be due to artifact or chronic inflammatory change. Peritoneum: No abnormal intraperitoneal fluid. No free air. Ventral Wall: No hernia. Abdominal Nodes: No enlarged retroperitoneal or mesenteric lymph nodes. Vessels: Aorta and inferior vena cava are normal in size. PELVIS: Pelvic Organs: Unremarkable. Pelvic Nodes: Unremarkable. Miscellaneous: No inguinal hernias are seen. Bones: Mild levoscoliosis. Mild degenerative disc and facet disease in lumbar spine. IMPRESSION: 1. There is a 5 mm obstructive stone in the distal right ureter causing mild right hydronephrosis. 2. Bilateral nonobstructive renal calculi. 3. A Cotter catheter within the urinary bladder. No bladder stones. Air within the bladder lumen is likely iatrogenic. 4. Contracted gallbladder. Question small gallstones and mild gallbladder wall thickening. If clinically indicated, ultrasound may be helpful. Dictated by: Harish Restrepo M.D. on 06/09/2023 at 14:52 Approved by: Harish Restrepo M.D. on 06/09/2023 at 15:00
[2023-06-09 13:27] LABS: Appearance Urine UA TURBID; Bilirubin Urine UA 2+ (NEGATIVE); Color Urine UA BROWN; Glucose Urine UA NEGATIVE (Negative); Ketones Urine UA TRACE (NEGATIVE); Leukocyte Esterase Urine UA NEGATIVE (NEGATIVE); Nitrite Urine UA NEGATIVE (Negative); Occult Blood Urine UA 3+ (Negative); Protein Urine UA 2+ (Negative); Specific Gravity Urine UA >=1.030 (1.000-1.035)
[2023-06-09 13:34] LABS: Amorphous Sediment Urine 2+; Bacteria Urine Occasional (0-1); Culture Indicated Urine Specimen Cultured; Ictotest Urine Negative (Negative); RBC Urine >100/HPF (0-5/HPF); Squamous Epithelial Cell Urine 1-5 /HPF (0-5/HPF); WBC Urine 0-1/HPF (0-5/HPF)
[2023-06-09] MEDS: KETOROLAC 30 MG/ML VIAL 15 MG IV (13:47)
--- NOTE | 2023-06-09 14:10 | ED.ABDPAIN ---
HPI - Abdominal Pain <Jessica Bee PA-C - Last Filed: 06/09/23 18:56> General Chief Complaint: Abdominal Pain Stated Complaint: RLQ pain Time Seen by Provider: 06/09/23 13:22 Source: patient and EMS Mode of arrival: EMS History of Present Illness HPI narrative: 42-year-old male with history of kidney stones presents with right lower quadrant pain. Was at his baseline yesterday, went to bed last night, and woke up early this morning with lower abdominal pain and unable to void. He tried to go to work this morning but had to leave because he still could not void and was in a lot of pain. This does not feel like previous kidney stones. He has not taken any medication. The pain is in the right lower quadrant and does not radiate. He denies fever, nausea vomiting, penile discharge. Related Data Previous Rx's Medication Instructions Recorded oxycodone-acetaminophen 5 mg-325 1 tab PO Q4H PRN pain (scale score 06/09/23 mg tablet 7-10) #14 tabs tamsulosin 0.4 mg capsule 0.4 mg PO DAILY #30 caps 06/09/23 Allergies Allergy/AdvReac Type Severity Reaction Status Date / Time Penicillins Allergy Swelling Verified 06/09/23 13:12 of Lip/Tongue/Throat Review of Systems <Jessica Bee PA-C - Last Filed: 06/09/23 18:56> Review of Systems ROS Unobtainable: All systems reviewed & are unremarkable except as noted in HPI and below Patient History <Jessica Bee PA-C - Last Filed: 06/09/23 18:56> Medical History Tobacco abuse Social History Smoking Status: Current every day smoker substance use type: former substance user and marijuana Smoking Status: Current every day smoker tobacco type: cigarettes Substance Use Type: marijuana Exam <Jessica Bee PA-C - Last Filed: 06/09/23 18:56> Narrative Exam Narrative: GENERAL: 42 year old patient appears stated age. Well-developed patient, in mild distress. NEURO: AOx3. HEAD: Atraumatic. Normocephalic. CARDIOVASCULAR: Regular rate and rhythm without murmurs, gallops, or rubs. RESPIRATORY: Clear to auscultation. Breath sounds equal bilaterally. No wheezes, rales, or rhonchi. GASTROINTESTINAL: Abdomen soft, tender over right lower quadrant, no distention, no peritoneal signs. Positive right-sided CVA tenderness. EXTREMITIES: No edema or joint tenderness. SKIN: No rash or erythema of visible areas Initial Vital Signs Initial Vital Signs: Vital Signs Pulse Oximetry 95 06/09/23 12:29 <Kelly Galeas DO - Last Filed: 06/09/23 19:33> Initial Vital Signs Initial Vital Signs: Vital Signs Pulse Oximetry 95 06/09/23 12:29 Course <Jessica Bee PA-C - Last Filed: 06/09/23 18:56> Orders Ordered: ED Orders 06/09/23 13:00 Ictotest Urine Stat Urinalysis and Microscopic Stat Urine Culture Stat 06/09/23 13:17 EKG-12 Lead Stat 06/09/23 13:22 CT kidney ureter bladder (KUB) Stat 06/09/23 14:05 Complete Blood Count AUTO DIFF Stat Comprehensive Metabolic Panel Stat Lipase Stat Discontinued Medications Ketorolac Tromethamine (Ketorolac 30 Mg/Ml Vial) 15 mg IV NOW ONE Stop: 06/09/23 13:38 Last Admin: 06/09/23 13:47 Dose: 15 mg Documented By: RANDELLB Lidocaine HCl (Lidocaine 2% (Glydo) 6 Ml Gel) 6 ml TOP NOW ONE Stop: 06/09/23 12:41 Last Admin: 06/09/23 13:15 Dose: 6 ml Documented By: RB Ondansetron HCl (Ondansetron 4 Mg Odt) 4 mg PO NOW PRN PRN Reason: Nausea And Vomiting Ondansetron HCl (Ondansetron 4 Mg/2 Ml Inj) 4 mg IV NOW PRN PRN Reason: Nausea And Vomiting Vital Signs Vital signs: Vital Signs - 8 hr 06/09/23 13:06 06/09/23 12:29 06/09/23 12:30 Temperature 97.9 F Pulse Rate 62 Respiratory Rate 18 Blood Pressure 153/85 H 153/85 H Pulse Oximetry 98 95 Oxygen Delivery Method Room Air 06/09/23 12:30 06/09/23 13:00 06/09/23 13:00 Temperature Pulse Rate 59 L 61 Respiratory Rate Blood Pressure 163/93 H Pulse Oximetry 100 99 Oxygen Delivery Method 06/09/23 13:30 06/09/23 13:30 06/09/23 14:00 Temperature Pulse Rate 62 79 Respiratory Rate 19 14 Blood Pressure 149/89 H Pulse Oximetry 100 Oxygen Delivery Method 06/09/23 14:18 06/09/23 14:18 06/09/23 14:30 Temperature Pulse Rate 103 H Respiratory Rate Blood Pressure 128/87 138/86 Pulse Oximetry 99 Oxygen Delivery Method 06/09/23 14:30 06/09/23 15:00 06/09/23 15:00 Temperature Pulse Rate 77 83 Respiratory Rate 18 Blood Pressure 128/79 Pulse Oximetry 99 98 Oxygen Delivery Method Room Air <Kelly Galeas, - Last Filed: 06/09/23 19:33> Orders Ordered: ED Orders 06/09/23 13:00 Ictotest Urine Stat Urinalysis and Microscopic Stat Urine Culture Stat 06/09/23 13:17 EKG-12 Lead Stat 06/09/23 13:22 CT kidney ureter bladder (KUB) Stat 06/09/23 14:05 Complete Blood Count AUTO DIFF Stat Comprehensive Metabolic Panel Stat Lipase Stat Discontinued Medications Ketorolac Tromethamine (Ketorolac 30 Mg/Ml Vial) 15 mg IV NOW ONE Stop: 06/09/23 13:38 Last Admin: 06/09/23 13:47 Dose: 15 mg Documented By: DKB Lidocaine HCl (Lidocaine 2% (Glydo) 6 Ml Gel) 6 ml TOP NOW ONE Stop: 06/09/23 12:41 Last Admin: 06/09/23 13:15 Dose: 6 ml Documented By: RB Ondansetron HCl (Ondansetron 4 Mg Odt) 4 mg PO NOW PRN PRN Reason: Nausea And Vomiting Ondansetron HCl (Ondansetron 4 Mg/2 Ml Inj) 4 mg IV NOW PRN PRN Reason: Nausea And Vomiting Vital Signs Vital signs: Vital Signs - 8 hr 06/09/23 13:06 06/09/23 12:29 06/09/23 12:30 Temperature 97.9 F Pulse Rate 62 Respiratory Rate 18 Blood Pressure 153/85 H 153/85 H Pulse Oximetry 98 95 Oxygen Delivery Method Room Air 06/09/23 12:30 06/09/23 13:00 06/09/23 13:00 Temperature Pulse Rate 59 L 61 Respiratory Rate Blood Pressure 163/93 H Pulse Oximetry 100 99 Oxygen Delivery Method 06/09/23 13:30 06/09/23 13:30 06/09/23 14:00 Temperature Pulse Rate 62 79 Respiratory Rate 19 14 Blood Pressure 149/89 H Pulse Oximetry 100 Oxygen Delivery Method 06/09/23 14:18 06/09/23 14:18 06/09/23 14:30 Temperature Pulse Rate 103 H Respiratory Rate Blood Pressure 128/87 138/86 Pulse Oximetry 99 Oxygen Delivery Method 06/09/23 14:30 06/09/23 15:00 06/09/23 15:00 Temperature Pulse Rate 77 83 Respiratory Rate 18 Blood Pressure 128/79 Pulse Oximetry 99 98 Oxygen Delivery Method Room Air MDM - Abdominal Pain <Jessica Bee PA-C - Last Filed: 06/09/23 18:56> Lab Data 06/09/23 14:05 06/09/23 14:05 Labs: Lab Results 06/09/23 06/09/23 06/09/23 Range/Units 13:00 14:05 14:05 WBC 10.4 (4.5-11.0) X10^3/uL RBC 5.14 (4.5-5.9) X10^6/uL Hgb 15.5 (13.5-17.5) g/dL Hct 45.8 (41-53) % MCV 89.1 (80-100) fL MCH 30.2 (26-34) PG MCHC 33.9 (30-36) % RDW 13.7 (11.6-14.8) % Plt Count 295 (150-400) X10^3/uL Neut % (Auto) 81.6 H (50-75) % Lymph % (Auto) 13.2 L (25-40) % [place] % (Auto) 4.4 (3-14) % Eos % (Auto) 0.4 L (2-4) % Baso % (Auto) 0.4 (0-2) % Neut # (Auto) 8500 H (8356-5693) /uL Lymph # (Auto) 1400 (7743-5111) /uL [place] # (Auto) 500 (0-900) /uL Eos # (Auto) 0 (0-450) /uL Baso # (Auto) 0 (0-100) /uL Sodium 138 (137-145) mmol/L Potassium 4.9 (3.4-5.1) mmol/L Chloride 102 (98-107) mmol/L Carbon Dioxide 30 (22-32) mmol/L BUN 18 (9-20) mg/dL Creatinine 1.07 (0.66-1.25) mg/dL Estimated GFR > 60 (>60) mL/min BUN/Creatinine Ratio 16.8 (6-22) Glucose 112 H (70-100) mg/dL Calcium 9.4 (8.4-10.2) mg/dL Total Bilirubin 0.6 (0.2-1.3) mg/dL AST 43 (17-59) IU/L ALT 33 (<50) IU/L Alkaline Phosphatase 133 H (38-126) U/L Total Protein 8.5 H (6.3-8.2) g/dL Albumin 4.7 (3.5-5.0) g/dL Globulin 3.8 (1.7-4.1) g/dL Albumin/Globulin Ratio 1.2 (1.0-2.8) Lipase 93 (23-300) U/L Urine Color Brown Urine Appearance Turbid Urine pH 5.0 (4.5-8.0) Ur Specific [place] >=1.030 H (1.000-1.035) Urine Protein 2+ H (Negative) Urine Glucose (UA) Negative (Negative) g/dL Urine Ketones Trace H (NEGATIVE) Urine Occult Blood 3+ H (Negative) Urine Nitrate Negative (Negative) Urine Bilirubin 2+ H (NEGATIVE) Ur Bilirubin Confirm Negative (Negative) Urine Urobilinogen 1.0 (0.2) E.U./dL Ur Leukocyte Esterase Negative (NEGATIVE) Urine RBC >100/hpf H (0-5/HPF) Urine WBC 0-1/hpf (0-5/HPF) Ur Squamous Epith Cells 1-5 /hpf (0-5/HPF) Amorphous Sediment 2+ Urine Bacteria Occasional (0-1) (None) Ur Culture Indicated? Specimen cultured Imaging Data CT scan - abdomen/pelvis: Radiologist's Impression: PROCEDURE:? CT KIDNEY URETER BLADDER (KUB) ? INDICATIONS:? RLQ, difficulty with urination ? TECHNIQUE:? Axial sections were acquired from the lung bases to the pubic symphysis.? Coronal and sagittal reformats were performed.? For radiation dose reduction, the following was used: ?automated exposure control, adjustment of mA and/or kV according to patient size.? ? COMPARISON:? None. ? FINDINGS:? Image quality:? Excellent.? ? Lung bases:? Unremarkable.? Small hiatal hernia. ? Heart:? No significant findings. ? URINARY: Right Kidney and ureter:? There is a 5 mm stone in the distal right ureter demonstrating CT density 520 HU.? Mild right hydronephrosis and perinephric stranding.? There is a 3 mm nonobstructive stone in the inferior pole.? Mild hydroureter and perinephric stranding to the level of the obstructive stone.? ? Left Kidney and ureter: ? There is a 3 mm nonobstructive stone in the superior pole.? No hydronephrosis. No hydroureter.? ? Bladder:? Cotter catheter within the bladder which is contracted. No calcified stones.? Air within the bladder lumen is likely iatrogenic. ? ? ABDOMEN: Liver:? Unremarkable.? ? Gallbladder:? Contracted.? Question small gallstones and mild wall thickening.? ? Biliary ducts:? Unremarkable.? ? Pancreas:? Unremarkable.? ? Spleen:? Unremarkable.? ? Adrenal Glands:? Unremarkable.? ? ? Stomach and Bowel:? Stomach, small bowel loops, and colon are normal in caliber.? There is a large amount of stool in colon.? The distal colon is decompressed.? Question mildly increased subacute to fat content in the distal colon, which could be due to artifact or chronic inflammatory change. Peritoneum:? No abnormal intraperitoneal fluid.? No free air.? ? Ventral Wall: ? No hernia.? Abdominal Nodes:? No enlarged retroperitoneal or mesenteric lymph nodes.? Vessels:? Aorta and inferior vena cava are normal in size.? ? PELVIS: Pelvic Organs:? Unremarkable.? ? Pelvic Nodes: Unremarkable. Miscellaneous: No inguinal hernias are seen. ? ? ? Bones:? Mild levoscoliosis.? Mild degenerative disc and facet disease in lumbar spine. ? IMPRESSION:? ? 1. There is a 5 mm obstructive stone in the distal right ureter causing mild right hydronephrosis. ? 2. Bilateral nonobstructive renal calculi.? ? 3. A Cotter catheter within the urinary bladder.? No bladder stones.? Air within the bladder lumen is likely iatrogenic. ? 4.? Contracted gallbladder.? Question small gallstones and mild gallbladder wall thickening.? If clinically indicated, ultrasound may be helpful. ? ? ? Dictated by: Harish Restrepo M.D. on 06/09/2023 at 14:52 ? ? Approved by: Harish Restrepo M.D. on 06/09/2023 at 15:00 ? MDM Narrative Medical decision making narrative: Multiple etiologies for patient's symptoms considered including, but not limited to: Kidney stone, appendicitis, cholelithiasis, diverticulitis, UTI. CT shows 5 mm right obstructing stone with mild right hydronephrosis. CT consistent with 5 mm obstructive stone on the right and bilateral nonobstructing stones. There is mild right hydronephrosis noted. His urine does not show signs of infection. His labs do not show clinically if he can not abnormality. Bladder drained with Cotter catheter, draining bloody urine. Pain managed with hydromorphone. Patient will be discharged with pain medication, work note, advised adequate hydration. Advised to follow up with Urology. Patient's symptoms improved over duration of stay with above-stated therapies. Findings and discharge diagnosis discussed with patient/family followed by verbalization of understanding Return precautions discussed with patient/family whom verbalize understanding of diagnosis and plan <Kelly Galeas, DO - Last Filed: 06/09/23 19:33> Lab Data Labs: Lab Results 06/09/23 06/09/23 06/09/23 Range/Units 13:00 14:05 14:05 WBC 10.4 (4.5-11.0) X10^3/uL RBC 5.14 (4.5-5.9) X10^6/uL Hgb 15.5 (13.5-17.5) g/dL Hct 45.8 (41-53) % MCV 89.1 (80-100) fL MCH 30.2 (26-34) PG MCHC 33.9 (30-36) % RDW 13.7 (11.6-14.8) % Plt Count 295 (150-400) X10^3/uL Neut % (Auto) 81.6 H (50-75) % Lymph % (Auto) 13.2 L (25-40) % [place] % (Auto) 4.4 (3-14) % Eos % (Auto) 0.4 L (2-4) % Baso % (Auto) 0.4 (0-2) % Neut # (Auto) 8500 H (9510-9874) /uL Lymph # (Auto) 1400 (8547-6607) /uL [place] # (Auto) 500 (0-900) /uL Eos # (Auto) 0 (0-450) /uL Baso # (Auto) 0 (0-100) /uL Sodium 138 (137-145) mmol/L Potassium 4.9 (3.4-5.1) mmol/L Chloride 102 (98-107) mmol/L Carbon Dioxide 30 (22-32) mmol/L BUN 18 (9-20) mg/dL Creatinine 1.07 (0.66-1.25) mg/dL Estimated GFR > 60 (>60) mL/min BUN/Creatinine Ratio 16.8 (6-22) Glucose 112 H (70-100) mg/dL Calcium 9.4 (8.4-10.2) mg/dL Total Bilirubin 0.6 (0.2-1.3) mg/dL AST 43 (17-59) IU/L ALT 33 (<50) IU/L Alkaline Phosphatase 133 H (38-126) U/L Total Protein 8.5 H (6.3-8.2) g/dL Albumin 4.7 (3.5-5.0) g/dL Globulin 3.8 (1.7-4.1) g/dL Albumin/Globulin Ratio 1.2 (1.0-2.8) Lipase 93 (23-300) U/L Urine Color Brown Urine Appearance Turbid Urine pH 5.0 (4.5-8.0) Ur Specific [place] >=1.030 H (1.000-1.035) Urine Protein 2+ H (Negative) Urine Glucose (UA) Negative (Negative) g/dL Urine Ketones Trace H (NEGATIVE) Urine Occult Blood 3+ H (Negative) Urine Nitrate Negative (Negative) Urine Bilirubin 2+ H (NEGATIVE) Ur Bilirubin Confirm Negative (Negative) Urine Urobilinogen 1.0 (0.2) E.U./dL Ur Leukocyte Esterase Negative (NEGATIVE) Urine RBC >100/hpf H (0-5/HPF) Urine WBC 0-1/hpf (0-5/HPF) Ur Squamous Epith Cells 1-5 /hpf (0-5/HPF) Amorphous Sediment 2+ Urine Bacteria Occasional (0-1) (None) Ur Culture Indicated? Specimen cultured ECG Data Attestation: I personally reviewed and interpreted this ECG as follows: Interpretation: Sinus bradycardia with marked sinus arrhythmia rate of 51 RI 120 QRS of 104 QTC of 403. No acute ST changes. Discharge Plan Departure Patient Disposition: Home Clinical Impression: Hydronephrosis with urinary obstruction due to renal calculus Instructions: DI for Kidney Stones Activity Restrictions/Additional Instructions: *You have been diagnosed with obstructive right kidney stone. You should drink lots of water, take ibuprofen 600 mg every 6 hours for pain, and if the pain is severe despite the ibuprofen, you can take the oxycodone that I prescribed to you. Do not operate heavy machinery or drink alcohol with the oxycodone. Keep it out of reach of children, take to pharmacy to dispose if you do not use it all. If you develop fever, nausea vomiting, feel ill, or can not void, you should return to the emergency department. You should follow up with Urology. You can call them on Monday to schedule a ER follow-up. If your symptoms resolve completely, you do not necessarily have to follow up. Your stone is 5 mm and should be able to pass without intervention. *What to do: *Please continue to take your regular medications as directed. [ x] New medication prescriptions sent to your pharmacy: [facility] [ ] New medication written as a paper prescription [ ] No new medications given *Please follow up with your primary care provider in 2-3 days, call for an appointment. Let them know you were seen in the Emergency Department and that we ask that you be seen in follow up. We will electronically transmit a record of today's note if your PCP is in our system *If you do not have a primary care provider please contact the [facility] Resource line at [phone]. They will ask some questions about your medical history and help get you set up with a doctor in the community. *Return to Emergency Department if you should have any new, worsening or concerning symptoms, such as [fever greater than 101 F, shaking chills, worsening pain, persistent vomiting or other bothersome symptoms] Prescriptions: New oxycodone-acetaminophen 5-325 mg tablet 1 tab PO Q4H PRN (Reason: pain (scale score 7-10)) Qty: 14 0RF tamsulosin 0.4 mg capsule 0.4 mg PO DAILY Qty: 30 0RF Stand Alone Forms: Patient Portal/API, Work Release Note <Kelly Galeas DO - Last Filed: 06/09/23 19:33> Cosign ED Attending Cosignature Attestation: I was immediately available in the department for consultation. Documentation has been reviewed.
[2023-06-09 14:22] LABS: Add Manual Diff / Slide Review NO; Basophils Absolute Auto 0 /uL (0-100); Basophils Percent Auto 0.4 % (0-2); Eosinophils Absolute Auto 0 /uL (0-450); Eosinophils Percent Auto 0.4 % (2-4); Hematocrit 45.8 % (41-53); Hemoglobin 15.5 g/dL (13.5-17.5); Lymphocytes Absolute Auto 1400 /uL (1100-4500); Lymphocytes Percent Auto 13.2 % (25-40); Mean Corpuscular HGB Conc 33.9 % (30-36); Mean Corpuscular Hemoglobin 30.2 PG (26-34); Mean Corpuscular Volume 89.1 fL (80-100); Monocytes Absolute Auto 500 /uL (0-900); Monocytes Percent Auto 4.4 % (3-14); Neutrophils Absolute Auto 8500 /uL (1500-7000); Neutrophils Percent Auto 81.6 % (50-75); Platelet Count 295 X10^3/uL (150-400); Red Blood Cell Count 5.14 X10^6/uL (4.5-5.9); Red Cell Distribution Width 13.7 % (11.6-14.8); White Blood Cell Count 10.4 X10^3/uL (4.5-11.0)
[2023-06-09 15:02] LABS: Alanine Aminotransferase 33 IU/L (<50); Albumin 4.7 g/dL (3.5-5.0); Albumin Globulin Ratio 1.2 (1.0-2.8); Alkaline Phosphatase 133 U/L (38-126); Aspartate Aminotransferase 43 IU/L (17-59); BUN Creatinine Ratio 16.8 (6-22); Bilirubin Total 0.6 mg/dL (0.2-1.3); Blood Urea Nitrogen 18 mg/dL (9-20); Calcium 9.4 mg/dL (8.4-10.2); Carbon Dioxide 30 mmol/L (22-32); Chloride 102 mmol/L (98-107); Estimated Glomerular Filt Rate > 60 mL/min (>60); Globulin 3.8 g/dL (1.7-4.1); Glucose 112 mg/dL (70-100); HEMOLYSIS 15 (0-50); Lipase 93 U/L (23-300); Potassium 4.9 mmol/L (3.4-5.1); Sodium 138 mmol/L (137-145); Total Protein 8.5 g/dL (6.3-8.2)
== END 2023-06-09 15:45 | disposition home or self-care (01) ==
PROVIDERS: Emergency Medicine; Emergency Provider Physician Assistant
DX: N13.2 Hydronephrosis with renal and ureteral calculous obstruction (principal); R10.9 Unspecified abdominal pain
CPT/HCPCS: 36415; 74176; 80053; 81001; 83690; 85025; 87086; 93005; 93010; 96374; 99284; J1885

== ENCOUNTER 2024-02-22 13:11 | Emergency (ER) | payer OTHER, MEDICAID, SELFPAY ==
[2024-02-22 13:17] VITALS: BP 117/67; PULSE 87; RESP 16; TEMP 36.3; O2SAT 97; BMI 28.8
--- NOTE | 2024-02-22 13:23 | ED.UPPEXIN ---
HPI - Extremity Injury (Upper) <Jose Shetty PA-C - Last Filed: 02/22/24 14:31> General Chief Complaint: Extremity Injury, Upper Stated Complaint: R hand laceration T-0 Time Seen by Provider: 02/22/24 13:23 Source: patient Mode of arrival: Ambulatory History of Present Illness HPI narrative: This is a 43-year-old male presents emergency department due to a right 3rd and 4th digit injury. He was working in the [employer] when his fingers sliced against an aluminum piece of metal. Tetanus is up-to-date. He was lacerations to the dorsal aspect of the 3rd and 4th digits. No active bleeding. Denies any numbness or decreases in range of motion. Related Data Previous Rx's Medication Instructions Recorded oxycodone-acetaminophen 5 mg-325 1 tab PO Q4H PRN pain (scale score 06/09/23 mg tablet 7-10) #14 tabs tamsulosin 0.4 mg capsule 0.4 mg PO DAILY #30 caps 06/09/23 sulfamethoxazole 800 1 tab PO BID #14 tabs 02/22/24 mg-trimethoprim 160 mg tablet (Bactrim DS) Allergies Allergy/AdvReac Type Severity Reaction Status Date / Time Penicillins Allergy Swelling Verified 02/22/24 13:19 of Lip/Tongue/Throat Review of Systems <Jose Shetty PA-C - Last Filed: 02/22/24 14:31> Review of Systems Narrative: GENERAL: Denies chills, fatigue, malaise, fever, sweats. HEENT: Denies sinus pain, ear pain, sore throat, difficulty swallowing, dizziness. RESPIRATORY: Denies dyspnea, cough, wheezing, hemoptysis, sputum. CARDIOVASCULAR: Denies chest pain, palpitations, orthopnea, edema, GASTROINTESTINAL: Denies nausea, vomiting, abdominal pain, diarrhea, constipation, melena. : Denies dysuria, frequency, incontinence, hematuria, urinary retention. MUSCULOSKELETAL: denies weakness, joint pain, or bony pain SKIN: Reports skin lacerations NEUROLOGIC: Denies weakness, headache, numbness, change in speech, confusion, seizures, incoordination. PSYCHIATRIC: No concerning psychosocial issues. 12 point review of systems is negative except for those stated above Patient History <CLARISSA Moseley Last Filed: 04/25/24 14:31> Medical History Tobacco abuse Social History Smoking Status: Current every day smoker substance use type: former substance user and marijuana Smoking Status: Current every day smoker tobacco type: cigarettes and vaping Substance Use Type: marijuana Exam <CLARISSA Moseley Last Filed: 02/22/24 14:31> Narrative Exam Narrative: GENERAL: Well-developed patient, in mild distress. HEAD: Atraumatic. Normocephalic. EYES: Pupils equal round and reactive. Extraocular motions intact. No scleral icterus. No injection or drainage. ENT: Nose without bleeding, purulent drainage. Throat without erythema, tonsillar hypertrophy or exudate. Airway patent. NECK: Trachea midline. Non tender EXTREMITIES: No edema or joint tenderness. NEURO: AOx3. SKIN: 2 cm laceration to the dorsal aspect of the 3rd digit between the MCP and PIP joint, another 2 cm laceration to the dorsal aspect of the 4th digit between the MCP and PIP joints. Neurovascularly intact. Full extension of the fingers. No active bleeding. Initial Vital Signs Initial Vital Signs: Vital Signs Temperature 97.4 F L 02/22/24 13:17 Pulse Rate 87 02/22/24 13:17 Respiratory Rate 16 02/22/24 13:17 Blood Pressure 117/67 02/22/24 13:17 Pulse Oximetry 97 02/22/24 13:17 Oxygen Delivery Method Room Air 02/22/24 13:17 <Timur Gonzales DO - Last Filed: 02/22/24 14:44> Initial Vital Signs Initial Vital Signs: Vital Signs Temperature 97.4 F L 02/22/24 13:17 Pulse Rate 87 02/22/24 13:17 Respiratory Rate 16 02/22/24 13:17 Blood Pressure 117/67 02/22/24 13:17 Pulse Oximetry 97 02/22/24 13:17 Oxygen Delivery Method Room Air 02/22/24 13:17 Procedures <Jose Shetty PA-C - Last Filed: 02/22/24 14:31> Laceration Repair Laceration 1: Time of procedure: 14:26 Site: other (R 3rd digit ) Size (cm): 2 Description: linear Depth: simple, single layer Local Anesthetic: lidocaine 1% Amount of anesthesia used (mL): 3 Pre-repair: irrigated extensively and cleansed with chlorhexadine Skin layer closed with: nylon Skin layer suture size: 5-0 Number of sutures: 4 Technique: simple, interrupted Laceration 2: Time of procedure: 14:27 Site: other (R 4th digit ) Size (cm): 2 Description: linear Depth: simple, single layer Local Anesthetic: lidocaine 1% Amount of anesthesia used (mL): 3 Pre-repair: irrigated extensively and cleansed with chlorhexadine Skin layer closed with: nylon Skin layer suture size: 5-0 Number of sutures: 4 Technique: simple, interrupted Course <Jose Shetty PA-C - Last Filed: 02/22/24 14:31> Orders Ordered: Discontinued Medications Lidocaine HCl (Lidocaine 1% 20 Ml) 20 ml INJ INTRA-OP ONE Stop: 02/22/24 13:38 Last Admin: 02/22/24 13:52 Dose: 20 ml Documented By: RLS Vital Signs Vital signs: Vital Signs - 8 hr 02/22/24 13:17 Temperature 97.4 F L Pulse Rate 87 Respiratory Rate 16 Blood Pressure 117/67 Pulse Oximetry 97 Oxygen Delivery Method Room Air <Timur Gonzales DO - Last Filed: 02/22/24 14:44> Orders Ordered: Discontinued Medications Lidocaine HCl (Lidocaine 1% 20 Ml) 20 ml INJ INTRA-OP ONE Stop: 02/22/24 13:38 Last Admin: 02/22/24 13:52 Dose: 20 ml Documented By: RLS Vital Signs Vital signs: Vital Signs - 8 hr 02/22/24 13:17 Temperature 97.4 F L Pulse Rate 87 Respiratory Rate 16 Blood Pressure 117/67 Pulse Oximetry 97 Oxygen Delivery Method Room Air MDM - Extremity Injury (Upper) <Jose Shetty PA-C - Last Filed: 02/22/24 14:31> MDM Narrative Medical decision making narrative: ED course: This is a 43-year-old male presents to the emergency department due to a laceration to the dorsal aspect of his right 3rd and 4th digits. Complete extension of the digits in the low concern for any kind of extensor mechanism injury. Tetanus was up-to-date. Lacerations were closed without complications. Patient was working with his hands which were very dirty, wound was cleaned extensively and irrigated but we will prescribe antibiotics for infection prophylaxis. Patient reports swelling of face and lips with penicillin so no cephalexin prescribed, we will prescribe Bactrim. CC: Finger laceration Complicating co-morbidities: None Data collected from: Previous notes Medical records reviewed: Patient was last seen in this emergency department 6 months ago due to hydronephrosis. No past medical history. Was found to have a 5 mm obstructing stone and discharge. Differential considered, but not limited to: Laceration, tendon injury, fracture Exam documented above, pertinent findings include: Full extension at the 3rd and 4th digits. Lab Test results independently reviewed as above. Pertinent findings: None obtained Imaging studies independently reviewed: None obtained Scores Used: None MIPS Elements: None Consultations: None Treatments: Laceration closure Re-evaluations: None Discussion: Discussed plan with the patient was comfortable with the plan Diagnosis: Finger lacerations Disposition: see below, along with detailed discharge instructions that have been reviewed with patient as well as indications for ED re-evaluation and additional outpatient follow up Discharge Plan Departure Patient Disposition: Home Clinical Impression: Finger laceration Activity Restrictions/Additional Instructions: Thank you for coming to the [facility] Emergency Department today. I am glad that we are close up the lacerations your fingers. Please follow up in the walk-in clinic in 10-14 days for suture removal. Please begin to take the antibiotics to avoid any kind of infection. Please return to the emergency department if you develop any fevers, redness spreading up your fingers or hand, numbness in your fingers, or any other concerning signs or symptoms. I hope you feel better soon. Please follow up with your primary care provider within a week if your symptoms continue. If you do not have a primary care provider please contact the [facility] Resource line at [phone]. They will ask some questions about your medical history and help you get set up with a provider in the community. Prescriptions: New sulfamethoxazole-trimethoprim [Bactrim DS] 800-160 mg tablet 1 tab PO BID Qty: 14 0RF No Action oxycodone-acetaminophen 5-325 mg tablet 1 tab PO Q4H PRN (Reason: pain (scale score 7-10)) Qty: 14 0RF tamsulosin 0.4 mg capsule 0.4 mg PO DAILY Qty: 30 0RF Referrals: *Temp,ED* [Primary Care Provider] - Stand Alone Forms: Patient Portal/API ED Sign-out <Timur Gonzales DO - Last Filed: 02/22/24 14:44> Cosign ED Attending Cosignature Attestation: Dr Gonzales Co-Sign Statement: I was available for consultation during this patient's emergency department visit. This chart is signed by myself for administrative purposes only. I did not have direct contact with this patient during this visit. They were seen independently by the APC.
[2024-02-22] MEDS: LIDOCAINE 1% 20 ML INJ (13:52)
[2024-02-22 14:38] VITALS: BP 112/71; PULSE 87; O2SAT 97
== END 2024-02-22 14:38 | disposition home or self-care (01) ==
PROVIDERS: Emergency Provider Physician Assistant Medical
DX: S61.210A Laceration without foreign body of right index finger without damage to nail, initial encounter (principal); S61.212A Laceration without foreign body of right middle finger without damage to nail, initial encounter; W26.8XXA Contact with other sharp object(s), not elsewhere classified, initial encounter; Y93.89 Activity, other specified; Y92.096 Garden or yard of other non-institutional residence as the place of occurrence of the external cause
CPT/HCPCS: 12002; 99282; 99283

== ENCOUNTER 2024-09-10 10:40 | Emergency (ER) | payer OTHER, MEDICAID, SELFPAY ==
[2024-09-10 10:47] VITALS: BP 145/93; PULSE 106; RESP 18; TEMP 36.6; O2SAT 99; BMI 27.6
[2024-09-10 11:12] LABS: Add Manual Diff / Slide Review NO; Basophils Absolute Auto 100 /uL (0-100); Basophils Percent Auto 1.2 % (0-2); Eosinophils Absolute Auto 300 /uL (0-450); Eosinophils Percent Auto 4.5 % (2-4); Hematocrit 47.8 % (41-53); Hemoglobin 16.2 g/dL (13.5-17.5); Lymphocytes Absolute Auto 1800 /uL (1100-4500); Lymphocytes Percent Auto 24.7 % (25-40); Mean Corpuscular HGB Conc 33.9 % (30-36); Mean Corpuscular Hemoglobin 30.1 PG (26-34); Monocytes Absolute Auto 400 /uL (0-900); Monocytes Percent Auto 5.2 % (3-14); Neutrophils Absolute Auto 4800 /uL (1500-7000); Neutrophils Percent Auto 64.4 % (50-75); Platelet Count 308 X10^3/uL (150-400); Red Blood Cell Count 5.37 X10^6/uL (4.5-5.9); Red Cell Distribution Width 14.1 % (11.6-14.8); White Blood Cell Count 7.5 X10^3/uL (4.5-11.0)
[2024-09-10 11:18] LABS: COVID19 -Nasal RAPID Negative (Negative)
[2024-09-10 11:29] LABS: Acetaminophen < 10 ug/mL (10-30); Alanine Aminotransferase 40 IU/L (<50); Albumin 4.1 g/dL (3.5-5.0); Albumin Globulin Ratio 1.2 (1.0-2.8); Alkaline Phosphatase 140 U/L (38-126); Aspartate Aminotransferase 38 IU/L (17-59); BUN Creatinine Ratio 10.6 (6-22); Bilirubin Total 0.5 mg/dL (0.2-1.3); Blood Urea Nitrogen 10 mg/dL (9-20); Calcium 9.3 mg/dL (8.4-10.2); Carbon Dioxide 27 mmol/L (22-32); Chloride 107 mmol/L (98-107); Estimated Glomerular Filt Rate > 60 mL/min (>60); Ethanol (ETOH) < 10 mg/dL; Globulin 3.4 g/dL (1.7-4.1); Glucose 91 mg/dL (70-100); HEMOLYSIS < 15 (0-50); Potassium 4.3 mmol/L (3.4-5.1); Salicylate < 1.0 mg/dL (<20); Sodium 140 mmol/L (137-145); Total Protein 7.5 g/dL (6.3-8.2)
[2024-09-10 11:34] LABS: UR Morphine/Opiate cutoff 300 Negative (Negative); Ur Creatinine Normal (Normal); Ur Specific Gravity Normal (Normal); Urine Cocaine Negative (Negative); Urine Tetrahydrocannabinol Negative (Negative); Urine pH Normal (Normal)
[2024-09-10 11:35] LABS: Urine Amphetamines Positive (Negative); Urine Barbiturates Negative (Negative); Urine Benzodiazepines Negative (Negative); Urine MDMA Negative (Negative); Urine Methadone Negative (Negative); Urine Methamphetamines Positive (Negative); Urine Oxycodone Negative (Negative); Urine Phencyclidine Negative (Negative); Urine Tricyclic Antidepressant Negative (Negative)
[2024-09-10 12:31] LABS: Free T4, Direct Thyroxine 0.76 ng/dL (0.78-2.19)
--- NOTE | 2024-09-10 12:45 | PC.NURSE ---
Patient has struggled with mental health most of his life, was hospitalized as a kid in [place]. Has not been on prescriptions for bipolar or schizophrenia for about 14 and has been self medicating with Meth. States the drugs on the streets aren't the same anymore, I need to do something I can't take this anymore Patient states the voices are strong, I can't block them out Tearful in triage apologizing for crying. Patient here with his mother and requesting help.
--- NOTE | 2024-09-10 13:10 | ED.GENADULT ---
HPI - General Adult General Chief complaint: Toxicology Problem Stated complaint: mental health Time Seen by Provider: 09/10/24 13:09 Source: patient Mode of arrival: Ambulatory History of Present Illness HPI narrative: 44-year-old gentleman with a history of schizophrenia, methamphetamine use has been trying to get off methamphetamine for the last 48 hours but he is having increasing auditory hallucinations and confusion. He has not describing suicidal or homicidal ideation. Comes in today looking for help with both his psychiatric issues as well as his methamphetamine use disorder. He states that 14 years ago he had been started on Seroquel for his diagnosed schizophrenia but did not find that it was helpful. He describes ?self medicating? with methamphetamine since then. He smokes as methamphetamine and is finding that each time he is smoking he is having more musculoskeletal chest tightness and wants to stop. Related Data Previous Rx's Medication Instructions Recorded oxycodone-acetaminophen 5 mg-325 1 tab PO Q4H PRN pain (scale score 06/09/23 mg tablet 7-10) #14 tabs tamsulosin 0.4 mg capsule 0.4 mg PO DAILY #30 caps 06/09/23 sulfamethoxazole 800 1 tab PO BID #14 tabs 02/22/24 mg-trimethoprim 160 mg tablet (Bactrim DS) Allergies Allergy/AdvReac Type Severity Reaction Status Date / Time Penicillins Allergy Swelling Verified 09/10/24 10:53 of Lip/Tongue/Throat Review of Systems Review of Systems Narrative: Pertinent positive and negative findings as per HPI Patient History Medical History Tobacco abuse Social History Smoking Status: Current every day smoker substance use type: former substance user and marijuana Smoking Status: Current every day smoker tobacco type: cigarettes and vaping Substance Use Type: marijuana and methamphetamine Exam Initial Vital Signs Initial Vital Signs: Vital Signs Temperature 97.8 F 09/10/24 10:47 Pulse Rate 106 H 09/10/24 10:47 Respiratory Rate 18 09/10/24 10:47 Blood Pressure 145/93 H 09/10/24 10:47 Pulse Oximetry 99 09/10/24 10:47 Oxygen Delivery Method Room Air 09/10/24 10:47 General: Slightly disheveled but in no acute distress. Able to give a complete and coherent history. Well-nourished well-developed HEENT: Moist mucous membranes, normal sclera with reactive pupils, Respiratory: Lungs are clear to auscultation, no wheezing no rales no rhonchi. Full and symmetrical air movement, no tenderness to palpation along anterior chest wall Cardiac: Regular rate and rhythm no murmurs no bruits Abdomen: Soft, nontender, good bowel tones, no flank pain Skin: Warm and dry, no rashes Neurologic: Grossly neurologically intact with no obvious asymmetries or abnormalities Extremities: No trauma, well perfused Psych: Cooperative, nonpressured speech, he is not responding to internal stimuli, good eye contact and appropriate insight Course Orders Ordered: ED Orders 09/10/24 11:00 COVID19 -Nasal RAPID Stat Urine Drug Screen, Rapid Stat 09/10/24 11:05 Acetaminophen Stat Complete Blood Count AUTO DIFF Stat Comprehensive Metabolic Panel Stat Ethanol (ETOH) Stat Free T4, Direct Thyroxine Stat Salicylate Stat Thyroid Stimulating Hormone Stat 09/10/24 13:05 Consult to [facility] - Marketing Analytics Manager Stat 09/10/24 13:20 EKG-12 Lead Stat Vital Signs Vital signs: Vital Signs - 8 hr 09/10/24 10:47 Temperature 97.8 F Pulse Rate 106 H Respiratory Rate 18 Blood Pressure 145/93 H Pulse Oximetry 99 Oxygen Delivery Method Room Air Medical Decision Making Lab Data 09/10/24 11:05 09/10/24 11:05 Labs: Lab Results 09/10/24 09/10/24 Range/Units 11:00 11:05 WBC 7.5 (4.5-11.0) X10^3/uL RBC 5.37 (4.5-5.9) X10^6/uL Hgb 16.2 (13.5-17.5) g/dL Hct 47.8 (41-53) % MCV 89.0 (80-100) fL MCH 30.1 (26-34) PG MCHC 33.9 (30-36) % RDW 14.1 (11.6-14.8) % Plt Count 308 (150-400) X10^3/uL Neut % (Auto) 64.4 (50-75) % Lymph % (Auto) 24.7 L (25-40) % Edgar % (Auto) 5.2 (3-14) % Eos % (Auto) 4.5 H (2-4) % Baso % (Auto) 1.2 (0-2) % Neut # (Auto) 4800 (4927-5915) /uL Lymph # (Auto) 1800 (4953-5083) /uL Edgar # (Auto) 400 (0-900) /uL Eos # (Auto) 300 (0-450) /uL Baso # (Auto) 100 (0-100) /uL Sodium 140 (137-145) mmol/L Potassium 4.3 (3.4-5.1) mmol/L Chloride 107 (98-107) mmol/L Carbon Dioxide 27 (22-32) mmol/L BUN 10 (9-20) mg/dL Creatinine 0.94 (0.66-1.25) mg/dL Estimated GFR > 60 (>60) mL/min BUN/Creatinine Ratio 10.6 (6-22) Glucose 91 (70-100) mg/dL Calcium 9.3 (8.4-10.2) mg/dL Total Bilirubin 0.5 (0.2-1.3) mg/dL AST 38 (17-59) IU/L ALT 40 (<50) IU/L Alkaline Phosphatase 140 H (38-126) U/L Total Protein 7.5 (6.3-8.2) g/dL Albumin 4.1 (3.5-5.0) g/dL Globulin 3.4 (1.7-4.1) g/dL Albumin/Globulin Ratio 1.2 (1.0-2.8) TSH 2.90 (0.47-4.68) uIU/mL Free T4 0.76 L (0.78-2.19) ng/dL Salicylates < 1.0 (<20) mg/dL U Opiates 300ng/mL cut Negative (Negative) Ur Oxycodone Screen Negative (Negative) Urine Methadone Screen Negative (Negative) Acetaminophen < 10 (10-30) ug/mL Ur Barbiturates Screen Negative (Negative) U Tricyclic Antidepress Negative (Negative) Ur Phencyclidine Scrn Negative (Negative) Ur Amphetamines Screen Positive H (Negative) U Methamphetamines Scrn Positive H (Negative) Ur MDMA Scrn (Ecstasy) Negative (Negative) U Benzodiazepines Scrn Negative (Negative) Urine Cocaine Screen Negative (Negative) U Marijuana (THC) Screen Negative (Negative) Urine pH Normal (Normal) Urine Specific [place] Normal (Normal) Ethyl Alcohol < 10 ( - 10) mg/dL Ur Creatinine Normal (Normal) SARS-CoV-2 (PCR) Negative (Negative) Urine Dip Bedside Urine Glucose Negative Bedside Urine Bilirubin - Negative Bedside Urine Ketone - Negative Urine Specific [place] 1.015 Bedside Urine Occult Blood - Negative Bedside Urine pH 5.5 Bedside Urine Protein - Negative Bedside Urine Urobilinogen - Negative Bedside Urine Nitrite - Negative Bedside Urine Leukocytes - Negative Esterase Point of care testing: Urine Dip Bedside Urine Glucose Negative Bedside Urine Bilirubin - Negative Bedside Urine Ketone - Negative Urine Specific [place] 1.015 Bedside Urine Occult Blood - Negative Bedside Urine pH 5.5 Bedside Urine Protein - Negative Bedside Urine Urobilinogen - Negative Bedside Urine Nitrite - Negative Bedside Urine Leukocytes - Negative Esterase MDM Narrative Medical decision making narrative: CC: Increased auditory hallucination and confusion Complicating co-morbidities: History of methamphetamine use and schizophrenia Data collected from: patient, mother Medical records reviewed: Notes beyond ER visits are not available Differential considered: Methamphetamine use, acute psychosis, schizophrenia Exam documented above, pertinent findings include: Patient is somewhat disheveled but is alert, appropriate, good eye contact fluent speech and clearly indicating that the voices are getting louder and he wants help and he wants to stop taking methamphetamine. Lab Test results independently reviewed as above. Pertinent findings: CBC is unremarkable Chemistries show minimally elevated alkaline phosphatase similar to prior studies TSH is appropriate Urinalysis suggests dehydration with ketones and red blood cells this does not appear to be infected Toxicology shows salicylate and acetaminophen is nondetectable Urine drug screen is positive for methamphetamine only Alcohol level is less than 10 Independently reviewed EKG: Sinus rhythm at a rate of 85. QTC is 406. No acute ischemic changes Consultations: CEMETERY LABORER, she is working on voluntary placement with [facility] Discussion: 44-year-old gentleman with a reported history of schizophrenia increased auditory hallucinations and request to help get off methamphetamine. He is concerned that with his mental health and drug use currently as it is he can no longer live independently. Very interested in inpatient treatment for both. He states his only medication for his presumed schizophrenia diagnosis with Seroquel over 14 years ago. He is alert, appropriate, good eye contact, nonpressured speech, no evidence that he is responding to internal stimuli at this time. He is medically cleared at this time. garden worker is going to send records to [facility] Patient is accepted to [facility] and transport is expected at 4:20 this afternoon Discharge Plan Departure Patient Disposition: Xfer Psychiatric Hosp Clinical Impression: Methamphetamine abuse, Auditory hallucination Schizophrenia Qualifiers: Schizophrenia type: unspecified Qualified Code(s): F20.9 - Schizophrenia, unspecified Prescriptions: No Action sulfamethoxazole-trimethoprim [Bactrim DS] 800-160 mg tablet 1 tab PO BID Qty: 14 0RF oxycodone-acetaminophen 5-325 mg tablet 1 tab PO Q4H PRN (Reason: pain (scale score 7-10)) Qty: 14 0RF tamsulosin 0.4 mg capsule 0.4 mg PO DAILY Qty: 30 0RF
--- NOTE | 2024-09-10 14:17 | CM.SWNOTE ---
ED Social Work Assessment Note Pt presented to the ED via his mother's private vehicle with c/o inability to stop using meth/marijuana steadily for the last 2-days. He has underlying mental health diagnoses of Bipolar Disorder and Schizophrenia, and is actively experiencing auditory hallucinations that are worsening in nature. He denies suicidality or homicidality. Pt resides with his 11 year-old son, his mother and sister in his mother's home in [place]. He's been using meth mostly everyday for the last 14-years, and has not had any psychiatric medication or assistance for the same amount of time. He is expressing wanting placement in detox/mental health dual tx facility. Discharge Planning/Care Management ED Psychiatric Symptoms Assessment Start: 09/10/24 12:42 Freq: Q2H Status: Active Protocol: Document 09/10/24 11:00 [facility] (Rec: 09/10/24 12:48 [facility] [id number]) Psychiatric Symptoms Assessment Symptoms/Complaint Detox Meth, schozphrenia and bipolar Duration Constant History Of Same Yes Context Recent Drug Abuse Improves With Nothing Worsens With Nothing Associated Psychiatric Symptoms Auditory Hallucinations, Depression,Racing Thoughts Associated Symptoms Insomnia Details of Plan Patient denies SI/HI. Level of Observation Intermittent Level of Consciousness Alert,Appropriate Patient Orientation Name,Age,Birthday,Month,Date, Year,Day of Week,Place, Situation Patient Behavior/Mood Cooperative,Crying/Tearful Ability to Follow Directions Good Patient Cognition Impaired No Affect Description Depressed,Tearful Patient Appearance Unkempt Hallucination Type Auditory Delusion Description Not Present Thought Process: Goal-directed Depressive Symptoms Increased Anxiety,Increased Irritability,Insomnia Major Depressive Episode Yes Feelings of Hopelessness Yes Suicidal Ideation None Suicide Plan No Plan Homicidal Ideation None Nausea/Vomiting None 09/10/24 12:45 Nurse Note by Migdalia Wallace Patient has struggled with mental health most of his life, was hospitalized as a kid in [place]. Has not been on prescriptions for bipolar or schizophrenia for about 14 and has been self medicating with Meth. States the drugs on the streets aren't the same anymore, I need to do something I can't take this anymore Patient states the voices are strong, I can't block them out Tearful in triage apologizing for crying. Patient here with his mother and requesting help. Initialized on 09/10/24 12:45 - END OF NOTE STRATEGIC MARKETING LEADER - Embroidery Operator Assessment Start: 09/10/24 14:06 Freq: Status: Active Protocol: Document 09/10/24 14:06 [facility] (Rec: 09/10/24 14:17 [facility] [id number]) STRATEGIC MARKETING LEADER/Embroidery Operator Assessment Start date 09/10/24 Visit Start Time 12:30 End date 09/10/24 Visit End Time 03:00 Total time Care Management spent on 150 patient visit-in minutes Presenting Problem Pt presents to the ED with c/o inability to get off of meth for the last 2-days binge. He has underlying mental health conditions of bipolar disorder and schizophrenia, and is actively hearing voices that are getting louder, are overwhelming, and confusing to him. He shares that he has been using meth steadily for the last 14-years, and has been uable to quit. He does not take any psychiatric medications at this time. Precipitating Event(s) No specific precipitating event other than being unable to stop using, and wanting help in detoxing/inpt [facility] tx. Patient Strengths Pt resides with his mother and sister, he is currently doing his best to take care of his son, and does not want to expose his son to his meth use and mental health exacerbation of issues. Current Behavioral Health Provider(s) none Include Facility, Provider, Ph. # Psych. Hx Mental Health and Chemical 14-years [facility] with meth and Dependency marijuana, daily use. No psych meds taken in also the last 14-years. Psychiatric Hospitalizations (date(s)/ N/A location) Psychosocial information & Support Family Systems School/Work unemployed Presenting Problem Active meth/marijuana use. Current Behavioral Health Provider(s) N/A Include Facility, Provider, Ph. # Rehab Facilities? ((Date(s), Location(s) N/A ) History of Withdrawal? Seizures? withdrawls Orientation (Person/Place/Time) Oriented to person, place, time, date. Difficulty maintaining focus. Stated Mood anxious Affect (Congruent with Mood?) Eyes mostly closed while talking, nervous, congruent with responding to auditory hallucinations. Thought Content - Specify/Describe Hallucinations do not include Obsessions, Delusions, Hallucinations voices telling him to hurt himself or others. Thought Processes (Xjgwsrf-Gxbzvzek-Oert Coherent Dwlwygty-Lxbpqmwz-Ajsuslnmdx- Astpyipkkpebhx-Bnvvjas-Wlxurxqnyrel- Thought Blocking) Speech (Ktyokv-Ziod-Qezxqlq-Rapid-Soft- slow, slurred Loud-Pressured) Motor (Ajlxvz-Edcxnosfz-Plrp-Other) anxious Insight (Tkli-Fmbd-Tyhk/Limited) Poor Judgement (Zmbb-Jdiz-Yahj/Limited) Poor Impulse Control (Adequate-Impaired) Impaired Memory (Wlagxsals-Phyyvu-Usnzkd, Unable to assess, is oriented Impaired-Intact) to recent memory. Concentration (Intact-Impaired) Impaired/distracted Attention (Intact-Impaired) Impaired Behavior (Appropriate-Inappropriate) appropriate Suicidal Ideation (Plan) No Homicidal Ideation (Plan) No Intervention STRATEGIC MARKETING LEADER Assessment. Pt is expressing wanting assistance in obtaining INPT rehab tx/ detox. Called and faxed pt's clinicals to [facility] for review . RA Plan D/c disposition working towards inpt [facility] placement- voluntary.
--- NOTE | 2024-09-10 14:56 | PC.NURSE ---
Stephen at [facility] accepts patient to [facility]. Arrival 1730. BLS transport will be set up. Accepting GAVIOTA Bailey
--- NOTE | 2024-09-10 15:13 | EKG_ITS ---
[facility] [address] [address] Test Date: 2024-09-10 Pat Name: Jaiden Cassidy Department: [facility] Room: Gender: Male President [place]: THERESA : 1980 Requested By: Order Number: [id number] Reading MD: Manuel Franco MD Measurements Intervals [place] Rate: 85 P: 175 MO: 112 QRS: 137 QRSD: 98 T: 124 QT: 342 QTc: 406 Interpretive Statements Suspect arm lead reversal, interpretation assumes no reversal Unusual P axis, possible ectopic atrial rhythm Left posterior fascicular block Electronically Signed On 09-10-2024 15:33:23 PST by Manuel Franco MD
[2024-09-10 16:30] VITALS: BP 129/86; PULSE 89; RESP 20; O2SAT 99
== END 2024-09-10 16:30 ==
PROVIDERS: Emergency Provider Emergency Medicine
DX: F15.10 Other stimulant abuse, uncomplicated (principal); F20.9 Schizophrenia, unspecified; I44.5 Left posterior fascicular block; Z11.52 Encounter for screening for COVID-19
CPT/HCPCS: 36415; 80053; 80305; 80320; 80329; 81003; 84439; 84443; 85025; 87635; 93005; 93010; 99283; 99284; G0480

== ENCOUNTER 2025-03-21 08:35 | Emergency (ER) | payer OTHER, MEDICAID, SELFPAY ==
[2025-03-21] VITALS (11 sets, daily range): BP systolic 110–147; BP diastolic 70–92; PULSE 87–97; RESP 16–29; TEMP 36.4; O2SAT 98–99; BMI 29.5
--- NOTE | 2025-03-21 09:28 | DI.RAD.S_ITS ---
PROCEDURE: XR CHEST 1V INDICATIONS: chest pain TECHNIQUE: One view of the chest was acquired. COMPARISON: [facility], CR, XR CHEST 1V, 02/16/2022, 21:11. FINDINGS: Surgical changes and devices: None. Lungs and pleura: Lungs are clear. No pleural effusions or pneumothorax. Mediastinum: Mediastinal contours appear normal. Heart size is normal. Bones and chest wall: No suspicious bony lesions. Overlying soft tissues appear unremarkable. IMPRESSION: No acute cardiopulmonary abnormality is seen. Dictated by: Bao Ruiz M.D. on 03/21/2025 at 10:10 Approved by: Bao Ruiz M.D. on 03/21/2025 at 10:11
--- NOTE | 2025-03-21 09:29 | DI.RAD.S_ITS ---
PROCEDURE: XR FOOT LT MIN 3V INDICATIONS: foot pain TECHNIQUE: 3 views of the foot were acquired. COMPARISON: None. FINDINGS: Bones: No fractures or dislocations. Flexion deformities of the toes. No suspicious bony lesions. Soft tissues: No tibiotalar joint effusion. Achilles tendon appears normal. IMPRESSION: No acute bony abnormality. Dictated by: Bao Ruiz M.D. on 03/21/2025 at 10:11 Approved by: Bao Ruiz M.D. on 03/21/2025 at 10:12
--- NOTE | 2025-03-21 09:36 | EKG_ITS ---
[place] [id number], [place] [address] Test Date: 2025-03-21 Pat Name: Jaiden Cassidy Department: Room: Gender: Male [employer]: KIARA : 1980 Requested By: Order Number: [id number] Reading MD: Joaquin Montesinos Measurements Intervals [place] Rate: 91 P: 5 CA: 108 QRS: 58 QRSD: 100 T: 56 QT: 342 QTc: 420 Interpretive Statements Sinus rhythm with short CA Nonspecific ST abnormality Electronically Signed On 03-21-2025 19:08:23 PDT by Joaquin Montesinos
--- NOTE | 2025-03-21 09:43 | PC.NURSE ---
Pt states that he is having shortness of breath with ambulation. Unable to obtain dorsal pedal pulse using doppler, strong tib post pulse palpated.
[2025-03-21 09:46] LABS: Add Manual Diff / Slide Review NO; Basophils Absolute Auto 100 /uL (0-100); Basophils Percent Auto 1.4 % (0-2); Eosinophils Absolute Auto 400 /uL (0-450); Eosinophils Percent Auto 5.6 % (2-4); Hematocrit 48.8 % (41-53); Hemoglobin 16.4 g/dL (13.5-17.5); Lymphocytes Absolute Auto 2500 /uL (1100-4500); Lymphocytes Percent Auto 35.6 % (25-40); Mean Corpuscular HGB Conc 33.7 % (30-36); Mean Corpuscular Hemoglobin 30.5 PG (26-34); Mean Corpuscular Volume 90.5 fL (80-100); Monocytes Absolute Auto 500 /uL (0-900); Monocytes Percent Auto 6.5 % (3-14); Neutrophils Absolute Auto 3600 /uL (1500-7000); Neutrophils Percent Auto 50.9 % (50-75); Platelet Count 287 X10^3/uL (150-400); Red Blood Cell Count 5.39 X10^6/uL (4.5-5.9); White Blood Cell Count 7.1 X10^3/uL (4.5-11.0)
[2025-03-21 10:03] LABS: Creatine Kinase 99 U/L (55-170)
[2025-03-21 10:04] LABS: Alanine Aminotransferase 44 IU/L (<50); Albumin 4.1 g/dL (3.5-5.0); Albumin Globulin Ratio 1.3 (1.0-2.8); Alkaline Phosphatase 115 U/L (38-126); Aspartate Aminotransferase 43 IU/L (17-59); BUN Creatinine Ratio 13.2 (6-22); Bilirubin Total 0.4 mg/dL (0.2-1.3); Blood Urea Nitrogen 12 mg/dL (9-20); Calcium 9.1 mg/dL (8.4-10.2); Carbon Dioxide 28 mmol/L (22-32); Chloride 105 mmol/L (98-107); Estimated Glomerular Filt Rate > 60 mL/min (>60); Globulin 3.2 g/dL (1.7-4.1); Glucose 101 mg/dL (70-99); HEMOLYSIS < 15 (0-50); Potassium 4.9 mmol/L (3.4-5.1); Sodium 140 mmol/L (137-145); Total Protein 7.3 g/dL (6.3-8.2)
[2025-03-21 10:10] LABS: Erythrocyte Sedimentation Rate 3 MM/HR (0-15)
[2025-03-21 10:16] LABS: Troponin I < 0.012 ng/mL (0.01-0.034)
[2025-03-21 10:29] LABS: COVID-19 CEPHEID 4-PLEX PCR Negative (Negative); Influenza A - CEPHEID Flu A NEGATIVE (NEGATIVE); Influenza B - CEPHEID Flu B NEGATIVE (NEGATIVE); Respiratory Syncytial Virus Negative (Negative)
[2025-03-21 11:19] LABS: NT-proBNP (BNP-Adult 18+) < 20 pg/mL (<125)
--- NOTE | 2025-03-21 11:25 | ED.GENADULT ---
HPI - General Adult General Chief complaint: Shortness of Breath/Dyspnea Stated complaint: big toe is black, weakness Time Seen by Provider: 03/21/25 09:18 Source: patient Mode of arrival: Ambulatory History of Present Illness HPI narrative: 45-year-old male without history of prior PAD or diabetes mellitus reports left great toenail thickening, black coloration great toe, not on current active treatment, some redness to the skin, no drainage. Currently not taking oral antibiotics, not any topical/oral antifungals. Also has complaint of recent days shortness of breath. No chest pain, arm pain, neck pain, back pain. No nausea or vomiting. No diaphoresis. No history of known coronary artery disease. No history of asthma or inhaler use. No history of heart failure, leg swelling symptoms. No history of blood clots to legs or lungs, no leg pain or swelling symptoms unilateral. Related Data Previous Rx's Medication Instructions Recorded oxycodone-acetaminophen 5 mg-325 1 tab PO Q4H PRN pain (scale score 06/09/23 mg tablet 7-10) #14 tabs tamsulosin 0.4 mg capsule 0.4 mg PO DAILY #30 caps 06/09/23 sulfamethoxazole 800 1 tab PO BID #14 tabs 02/22/24 mg-trimethoprim 160 mg tablet (Bactrim DS) albuterol sulfate 90 mcg/actuation 2 puff inhalation Q6H PRN 03/21/25 aerosol inhaler shortness of breath or wheezing #8.5 grams clindamycin HCl 300 mg capsule 300 mg PO Q6H toe infection 7 days 03/21/25 #28 caps Allergies Allergy/AdvReac Type Severity Reaction Status Date / Time Penicillins Allergy Swelling Verified 03/21/25 09:52 of Lip/Tongue/Throat Patient History Medical History Tobacco abuse Social History substance use type: former substance user and marijuana tobacco type: cigarettes and vaping Exam Narrative Exam Narrative: GENERAL: Well-developed patient, in mild distress. HEAD: Atraumatic. Normocephalic. EYES: Pupils equal round and reactive. Extraocular motions intact. No scleral icterus. No injection or drainage. ENT: Nose without bleeding, purulent drainage. Throat without erythema, tonsillar hypertrophy or exudate. Airway patent. NECK: Trachea midline. Non tender CARDIOVASCULAR: Regular rate and rhythm without murmurs, gallops, or rubs. RESPIRATORY: Clear to auscultation. Breath sounds equal bilaterally. No wheezes, rales, or rhonchi. GASTROINTESTINAL: Abdomen soft, non-tender, nondistended. EXTREMITIES: Left great toe with nail fungal hypertrophy, some erythema without expressible fluctuance or fluid, no black coloraton, good cap refill, possible periungual toe cellulitis. No ulcerations, vesicles, foreign body obvious. No lymphangitic streaking dorsal foot or plantar foot. No intertriginous skin changes. BACK: Nontender without deformity or crepitance. No flank tenderness. NEURO: AOx3. Motor functions grossly nonfocal SKIN: No rash or erythema of visible areas Initial Vital Signs Initial Vital Signs: Vital Signs Pulse Rate 88 03/21/25 09:03 Pulse Oximetry 98 03/21/25 09:03 Course Orders Ordered: ED Orders 03/21/25 11:50 Troponin I Stat Discontinued Medications Albuterol (Albuterol 2.5 Mg/3 Ml Neb (Adult)) 2.5 mg INH NOW ONE Stop: 03/21/25 11:41 Last Admin: 03/21/25 11:55 Dose: 2.5 mg Documented By: BETO Clindamycin HCl (Clindamycin 150 Mg Capsule) 300 mg PO NOW ONE Stop: 03/21/25 11:42 Last Admin: 03/21/25 11:47 Dose: 300 mg Documented By: JR Vital Signs Vital signs: Vital Signs - 8 hr 03/21/25 09:03 03/21/25 09:04 03/21/25 09:04 Temperature Pulse Rate 88 87 Respiratory Rate Blood Pressure 147/77 H Pulse Oximetry 98 98 Oxygen Delivery Method 03/21/25 09:10 03/21/25 09:10 03/21/25 09:11 Temperature 97.5 F L Pulse Rate 97 H 88 Respiratory Rate 18 19 Blood Pressure 122/81 122/81 Pulse Oximetry 99 98 Oxygen Delivery Method Room Air 03/21/25 09:30 03/21/25 09:30 03/21/25 10:00 Temperature Pulse Rate 95 H 92 H Respiratory Rate 22 29 H Blood Pressure 125/81 Pulse Oximetry 99 98 Oxygen Delivery Method 03/21/25 10:00 03/21/25 10:30 03/21/25 10:30 Temperature Pulse Rate 90 Respiratory Rate 20 Blood Pressure 118/76 111/71 Pulse Oximetry 99 Oxygen Delivery Method 03/21/25 11:00 03/21/25 11:00 03/21/25 11:30 Temperature Pulse Rate 96 H 95 H Respiratory Rate 22 Blood Pressure 110/74 Pulse Oximetry 98 99 Oxygen Delivery Method 03/21/25 11:30 03/21/25 12:00 03/21/25 12:00 Temperature Pulse Rate 93 H Respiratory Rate 19 20 16 Blood Pressure 145/92 H 121/70 Pulse Oximetry 98 98 Oxygen Delivery Method Room Air Room Air Medical Decision Making Lab Data Lab results reviewed: Yes I reviewed the patient's lab results. Lab results narrative: White blood cell count 7100, hemoglobin 16.4, platelets adequate. Glucose 101. Normal renal function. Normal electrolytes. Normal liver functions. Troponin negative/unmeasurable. BNP negative/unmeasurable. COVID influenza RSV swab negative. 03/21/25 09:30 03/21/25 09:30 Labs: Lab Results 03/21/25 03/21/25 03/21/25 Range/Units 09:30 09:49 11:50 WBC 7.1 (4.5-11.0) X10^3/uL RBC 5.39 (4.5-5.9) X10^6/uL Hgb 16.4 (13.5-17.5) g/dL Hct 48.8 (41-53) % MCV 90.5 (80-100) fL MCH 30.5 (26-34) PG MCHC 33.7 (30-36) % RDW 13.0 (11.6-14.8) % Plt Count 287 (150-400) X10^3/uL Neut % (Auto) 50.9 (50-75) % Lymph % (Auto) 35.6 (25-40) % [place] % (Auto) 6.5 (3-14) % Eos % (Auto) 5.6 H (2-4) % Baso % (Auto) 1.4 (0-2) % Neut # (Auto) 3600 (6205-3301) /uL Lymph # (Auto) 2500 (4783-8837) /uL [place] # (Auto) 500 (0-900) /uL Eos # (Auto) 400 (0-450) /uL Baso # (Auto) 100 (0-100) /uL ESR 3 (0-15) MM/HR Sodium 140 (137-145) mmol/L Potassium 4.9 (3.4-5.1) mmol/L Chloride 105 (98-107) mmol/L Carbon Dioxide 28 (22-32) mmol/L BUN 12 (9-20) mg/dL Creatinine 0.91 (0.66-1.25) mg/dL Estimated GFR > 60 (>60) mL/min BUN/Creatinine Ratio 13.2 (6-22) Glucose 101 H (70-99) mg/dL Calcium 9.1 (8.4-10.2) mg/dL Total Bilirubin 0.4 (0.2-1.3) mg/dL AST 43 (17-59) IU/L ALT 44 (<50) IU/L Alkaline Phosphatase 115 (38-126) U/L Total Creatine Kinase 99 (55-170) U/L Troponin I < 0.012 < 0.012 (0.01-0.034) ng/mL NT-Pro-B Natriuret Pep < 20 (<125) pg/mL Total Protein 7.3 (6.3-8.2) g/dL Albumin 4.1 (3.5-5.0) g/dL Globulin 3.2 (1.7-4.1) g/dL Albumin/Globulin Ratio 1.3 (1.0-2.8) SARS-CoV-2 (PCR) Negative (Negative) Influenza A (RT-PCR) Flu a negative (NEGATIVE) Influenza B (RT-PCR) Flu b negative (NEGATIVE) RSV (PCR) Negative (Negative) Imaging Data Chest x-ray: Radiologist's Impression: Close Foot X-Ray (Signed) Bao Ruiz - 03/21/25 Chest X-Ray (Signed) Bao Ruiz - 03/21/[address] [address] XRay Report Signed Patient: Jaiden Cassidy MR#: [id number] : 1980 Acct:[id number] Age/Sex: 44 / M Date of Service: 03/21/25 Loc: ED Accession Number: [id number] Procedure: XR chest 1V Ordering Provider: Tomi Valentino MD PROCEDURE: XR CHEST 1V INDICATIONS: chest pain TECHNIQUE: One view of the chest was acquired. COMPARISON: [facility], , XR CHEST 1V, 02/16/2022, 21:11. FINDINGS: Surgical changes and devices: None. Lungs and pleura: Lungs are clear. No pleural effusions or pneumothorax. Mediastinum: Mediastinal contours appear normal. Heart size is normal. Bones and chest wall: No suspicious bony lesions. Overlying soft tissues appear unremarkable. IMPRESSION: No acute cardiopulmonary abnormality is seen. Dictated by: Bao Ruiz M.D. on 03/21/2025 at 10:10 Approved by: Bao Ruiz M.D. on 03/21/2025 at 10:11 Extremity x-ray #1: Radiologist's Impression: Close Foot X-Ray (Signed) Bao Ruiz - 03/21/25 Chest X-Ray (Signed) Bao Ruiz - 03/21/25 [facility] [address] XRay Report Signed Patient: Jaiden Cassidy MR#: [id number] : 1980 Acct:[id number] Age/Sex: 44 / M Date of Service: 03/21/25 Loc: ED Accession Number: [id number] Procedure: XR foot LT min 3V Ordering Provider: Tomi Valentino MD PROCEDURE: XR FOOT LT MIN 3V INDICATIONS: foot pain TECHNIQUE: 3 views of the foot were acquired. COMPARISON: None. FINDINGS: Bones: No fractures or dislocations. Flexion deformities of the toes. No suspicious bony lesions. Soft tissues: No tibiotalar joint effusion. Achilles tendon appears normal. IMPRESSION: No acute bony abnormality. Dictated by: Bao Ruiz M.D. on 03/21/2025 at 10:11 Approved by: Bao Ruiz M.D. on 03/21/2025 at 10:12 ECG Data Attestation: I personally reviewed and interpreted this ECG as follows: Interpretation: Normal sinus rhythm with rate of 91, no obvious ST segment elevation or depression changes. FL 108, QRS 100, QTC 420. MDM Narrative Medical decision making narrative: 44-year-old male triage with complaint of left great toe black coloration, it does not appear black on examination. There is some thickening of the toenail consistent with onychomycosis, no expressible fluid. Some surrounding erythema to the toe, doubt gouty change. Suspicious for periungual toe cellulitis. X-ray without osteomyelitis changes, see radiology report. History of severe penicillin allergy. Will avoid cephalosporins for now. Trial of clindamycin, 1st oral dose given, prescription sent for further oral antibitoics course. Consider Podiatry follow up for elective toenail removal and/or filing down of thickened portion and/or other toenail onychomycosis treatment options. Contact information given for local orthopedic surgery on-call, he does not have a local PCP. Given contact info local orthopedics on-call. Also patient had shortness of breath symptoms of unclear cause, look clear lungs, afebrile, chest x-ray negative see radiology report, EKG and serial blood testing not suggestive of AMI at this time. Trial of albuterol. Normal COVID influenza RSV testing. BNP normal. Discharge with albuterol inhaler with spacer. Discharge Plan Departure Patient Disposition: Home Clinical Impression: Cellulitis, Onychomycosis, Shortness of breath Activity Restrictions/Additional Instructions: History of left great toenail thickening, on examination seems consistent with onychomycosis fungal infection of the toenail. There various treatment options that can be done for this. Usually managed by your primary care provider. Sometimes the toenail can be removed. Consider Podiatry consult. You do have some redness to the surrounding skin area without any expressible fluid, seems less likely gout related, consider cellulitis skin infection which is usually bacterial. X-ray left foot did not show any bony fracture or bone infection like changes. History of penicillin allergy. Unclear if you can take cephalosporin related antibiotics. Trial of oral clindamycin antibiotic, 1st dose in the emergency department, further antibiotics sent prescription to your pharmacy. 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 Otherwise follow up with your primary care provider. Primary care provider can be established for new patients by calling the phone number [phone]. You also had shortness of breath of unclear cause, seemed to not be in any respiratory distress with clear lungs, no fever. Chest x-ray and EKG and blood tests were unremarkable. COVID influenza RSV viral panel was negative. Trial of inhaler, prescription sent to your pharmacy, to use with spacer, 2 puffs 4 times daily for the next week and then as needed, further follow up and evaluation as an outpatient. Prescriptions: New clindamycin HCl 300 mg capsule 300 mg PO Q6H 7 Days Qty: 28 0RF albuterol sulfate 90 mcg/actuation HFA aerosol inhaler 2 puff inhalation Q6H PRN (Reason: shortness of breath or wheezing) Qty: 8.5 0RF No Action sulfamethoxazole-trimethoprim [Bactrim DS] 800-160 mg tablet 1 tab PO BID Qty: 14 0RF oxycodone-acetaminophen 5-325 mg tablet 1 tab PO Q4H PRN (Reason: pain (scale score 7-10)) Qty: 14 0RF tamsulosin 0.4 mg capsule 0.4 mg PO DAILY Qty: 30 0RF Referrals: Mark Torres MD [Physician] - Stand Alone Forms: Patient Portal/API/Survey
--- NOTE | 2025-03-21 11:34 | PC.NURSE ---
Pt up to BR independently. Appears in NAD. Does not appear SOB upon return to room. Sats 98% on RA.
[2025-03-21] MEDS: CLINDAMYCIN 150 MG CAPSULE 300 MG PO (11:47)
[2025-03-21] MEDS: ALBUTEROL 2.5 MG/3 ML NEB (ADULT) INH (11:55)
[2025-03-21 12:24] LABS: Troponin I < 0.012 ng/mL (0.01-0.034)
--- NOTE | 2025-03-21 13:21 | RT ---
pt sheela patton well, on room air with no distress noted
== END 2025-03-21 12:40 | disposition home or self-care (01) ==
PROVIDERS: Emergency Provider Emergency Medicine
DX: L03.032 Cellulitis of left toe (principal); B35.1 Tinea unguium; R06.02 Shortness of breath; Z88.0 Allergy status to penicillin
CPT/HCPCS: 0241U; 36415; 71045; 73630; 80053; 82550; 83880; 84484; 85025; 85651; 93005; 94640; 99284; J7613